=== PATIENT | female | born 2000 | race Caucasian/White ===

== ENCOUNTER 2024-10-21 10:16 | Outpatient (OUT) | payer OTHER, SELFPAY ==
--- NOTE | 2024-10-21 10:50 | ECG_ITS ---
[facility] Test Date: 2024-10-21 Pat Name: LILI NAGY Department: Room: - Gender: Female Wrapper Caser: : 2000 Requested By: JOSE QUINTANILLA Order Number: [id number] Reading MD: JANICE GIBBS Measurements Intervals [place] Rate: 58 P: 38 FL: 139 QRS: 64 QRSD: 89 T: 69 QT: 413 QTc: 406 Interpretive Statements SINUS BRADYCARDIA WITH SINUS ARRHYTHMIA Compared to ECG 09/04/2020 10:33:10 T-wave abnormality no longer present Electronically Signed On 10-21-2024 17:56:50 EST by JANICE GIBBS
[2024-10-21 10:59] LABS: Bilirubin Urine NEGATIVE (NEGATIVE); Blood Urine LARGE (NEGATIVE); Clarity Urine CLEAR (CLEAR); Color Urine YELLOW (YELLOW); Glucose Urine UA NEGATIVE (NEGATIVE); Ketones Urine NEGATIVE (NEGATIVE); Leukocyte Esterase Urine NEGATIVE (NEGATIVE); Nitrite Urine NEGATIVE (NEGATIVE); Protein Urine TRACE mg/dL (NEG/TRACE); Specific Gravity Urine >=1.030 (1.005-1.025); Urobilinogen Urine 0.2 EU/dL (0.2-1.0); pH Urine 5.5 (5.0-9.0)
[2024-10-21 11:00] LABS: Basophils Percent Auto 0.6 % (0.2-2.0); Eosinophils Absolute Auto 0.1 10^3/uL (0.0-0.7); Eosinophils Percent Auto 1.4 % (0.9-7.0); Hematocrit 42.3 % (36.0-48.0); Immature Granulocytes Abs Auto 0.01 10^3/uL (0.00-0.03); Immature Granulocytes Pct Auto 0.2 % (0.0-0.5); Lymphocytes Absolute Auto 1.5 10^3/uL (1.2-3.8); Lymphocytes Percent Auto 31.6 % (20.5-60.0); Mean Corpuscular HGB Conc 35.5 g/dL (29.9-35.2); Mean Corpuscular Hemoglobin 30.9 pg (26.7-34.0); Mean Corpuscular Volume 87.2 fL (81.0-99.0); Mean Platelet Volume 10.7 fL (9.5-13.5); Monocytes Absolute Auto 0.3 10^3/uL (0.3-0.8); Monocytes Percent Auto 6.4 % (1.7-12.0); Neutrophils Absolute Auto 2.9 10^3/uL (1.4-6.5); Neutrophils Percent Auto 59.8 % (43.0-75.0); Platelet Count 228 10^3/uL (150-450); Red Blood Count 4.85 10^6/uL (4.20-5.40); Red Cell Distribution Width 12.4 % (11.0-15.0); White Blood Count 4.9 10^3/uL (4.0-11.0)
[2024-10-21 11:36] LABS: Alanine Aminotransferase 27 U/L (14-59); Albumin Globulin Ratio 1.3; Albumin Level 4.4 g/dL (3.4-5.0); Alkaline Phosphatase 57 U/L (46-116); Anion Gap 13.7; Aspartate Amino Transferase 15 U/L (15-37); BUN Creatinine Ratio 14.3; Bilirubin Total 2.6 mg/dL (0.2-1.0); Calcium 9.2 mg/dL (8.5-10.1); Carbon Dioxide 27.9 mmol/L (21.0-32.0); Chloride 104 mmol/L (98-107); Estimated GFR (African America >60 (>=60 mL/min/1.73m^2); Estimated GFR (Non-African Ame >60 (>=60 mL/min/1.73m^2); Globulin 3.4 g/dL; Glucose 93 mg/dL (74-106); Potassium 3.6 mmol/L (3.5-5.1); Sodium 142 mmol/L (136-145); Thyroid Stimulating Hormone 2.551 uIU/mL (0.358-3.740); Total Protein 7.8 g/dL (6.4-8.2)
== END 2024-10-21 10:17 | disposition home or self-care (01) ==
PROVIDERS: PCP Family Medicine; Visit Provider Family Medicine
DX: Z00.00 Encounter for general adult medical examination without abnormal findings (principal); R53.83 Other fatigue; R35.0 Frequency of micturition; R07.9 Chest pain, unspecified; R00.1 Bradycardia, unspecified
CPT/HCPCS: 36415; 80053; 81003; 84443; 85025; 87086; 93005

== ENCOUNTER 2024-11-08 08:09 | Outpatient (OUT) | payer OTHER, SELFPAY ==
--- OUTSIDE RECORDS SUMMARY | 2024-11-08 08:27 | XMS_ITS | CCD ---
Author Organization [facility] Care Team Providers Care New Patient Escort Name Role Phone MUNA VAZQUEZ Attending Unavailable MUNA VAZQUEZ Consulting Unavailable MUNA VAZQUEZ Primary Care Unavailable MUNA VAZQUEZ Admitting Unavailable HAY ELLIS Attending Unavailable Allergies Allergy Classification Reported Allergen(s) Allergy Type Date of Onset Reaction(s) Facility (3 sources) cefTRIAXone Drug Allergy 4 [facility] (3 sources) Cephalosporins (Antibiotic) Allergy to substance 4 [facility] Comment on above: Onset Date: 06/25/20 13 (3 sources) Penicillins Allergy to substance [address] [place] [address] Comment on above: Onset Date: 06/25/20 13 (1 source) RO-CET-N 100; Translations: [RO-CET-N 100] Propensity to adverse reactions to drug (disorder) 5 [facility] Repository Medications Completed/Discontinued Medications Medication Drug Class(es) Dates Sig (Normalized) Sig (Original) ofloxacin 3 mg/ml ophthalmic solution (2 sources) Quinolone Antimicrobial Start: 06-02-2024 End: 10-21-2024 take 0.3 drop(s) into the eye(s) four times daily Ofloxacin 0.3 % drops Discontinued 2 DROPS OPHTHALMIC Four times daily 02 05June 01, 2024 11:00pm October 21, 2024 9:33am right eye Start: 06-02-2024 take 1 drop(s) into the eye(s) four times daily Ofloxacin Active 2 DROPS OPHTHALMIC Four times daily 02 05June 02, 2024 12:00am right eye sulfamethoxazole 800 mg / trimethoprim 160 mg oral tablet (3 sources) Dihydrofolate Reductase Inhibitor Antibacterial, Sulfonamide Antimicrobial Start: 04-16-2024 End: 06-02-2024 take 1 tablet by mouth twice daily Sulfamethoxazole-Trimethoprim 800-160 mg tablet Discontinued 1 TAB PO Twice daily April 15, 2024 11:00pm June 02, 2024 1:42pm Problems Problem Classification Problem Date Documented Date Episodic/Chronic Cardiac dysrhythmias (6 sources) Tachycardia, unspecified; Translations: [TACHYCARDIA UNSPECIFIED] Onset: 09-04-2020 Episodic Conditions associated with dizziness or vertigo (2 sources) Dizziness and giddiness; Translations: [Dizziness and giddiness] Onset: 11-05-2024 Episodic Genitourinary symptoms and ill-defined conditions (2 sources) Increased frequency of urination; Translations: [Frequency of micturition] 10-21-2024 Episodic Inflammation; infection of eye (except that caused by tuberculosis or sexually transmitteddisease) (1 source) Conjunctivitis of right eye; Translations: [Unspecified conjunctivitis] 06-02-2024 Episodic Malaise and fatigue (2 sources) Fatigue; Translations: [Other fatigue] 10-21-2024 Episodic Nonmalignant breast conditions (3 sources) Cellulitis of breast; Translations: [Mastitis without abscess] 04-17-2024 Episodic Nonspecific chest pain (4 sources) Chest pain; Translations: [Chest pain, unspecified] Onset: 11-05-2024 10-21-2024 Episodic Other liver diseases (2 sources) Unspecified jaundice; Translations: [Unspecified jaundice] Onset: 11-05-2024 Episodic Results Test Name Value Interpretation Reference Range [facility] ity Office Visiton 11-05-2024 Follow-up visit [id number] Tamiko Wills 2000 F Date Provider Department Center 11/05/2024 [id number] ELLIS CARD [facility] Family History Problem Relation Age of Onset No Known Problems Mother No Known Problems Father Atrial fibrillation Maternal Grandmother Myocarditis Maternal Grandmother Other Maternal Grandmother Other Maternal Grandfather Other Maternal Grandfather Family Status - Relation Status Age at Mother Father Maternal Grandmother Maternal Grandfather Level of Service:98635 SC OFFICE/OUTPATIENT NEW MODERATE MDM 45 MINUTES Reason for Visit and Comments: Palpitations [703073] - Had EKG and labs on 10/21/2024. Mother said she had EKG and Holter monitor back in 2019. Shortness of Breath [576727] Chest Pain [519220] - Had an episode of chest pain w/ SOB recently. Mother states her HR was around 115 during this time. She said HR came down very quickly to 66. Fatigue [46] - Says she feels super lethargic . Normal [facility] Vital Signs Date Time Vital Sign Value Performing Clinician Jaclyn hatch 10-21-2024 09:21-0500 Body height 170.18 cm [facility] 10-21-2024 09:21-0500 Body mass index (BMI) [Ratio] 25.7 kg/m2 [facility] 10-21-2024 09:21-0500 Body weight 74.38 kg [facility] 10-21-2024 09:21-0500 Diastolic blood pressure 72 mm[Hg] [facility] 10-21-2024 09:21-0500 Heart rate 94 /min [facility] 10-21-2024 09:21-0500 Systolic blood pressure 111 mm[Hg] [facility] 06-02-2024 14:45-0400 Body height 170.18 cm [facility] 06-02-2024 14:45-0400 Body mass index (BMI) [Ratio] 25.7 kg/m2 [facility] 06-02-2024 14:45-0400 Body temperature 98.9 [degF] [facility] 06-02-2024 14:45-0400 Body weight 74.44 kg [facility] 06-02-2024 14:45-0400 Diastolic blood pressure 78 mm[Hg] [facility] 06-02-2024 14:45-0400 Heart rate 105 /min [facility] 06-02-2024 14:45-0400 SaO2% (BldA) [Mass fraction] 99 % [facility] 06-02-2024 14:45-0400 Systolic blood pressure 119 mm[Hg] [facility] 04-17-2024 13:41-0400 Body height 170.18 cm [facility] 04-16-2024 10:55-0400 Body height 170.18 cm [facility] 04-16-2024 10:55-0400 Body mass index (BMI) [Ratio] 25 kg/m2 [facility] 04-16-2024 10:55-0400 Body weight 72.57 kg [facility] 04-16-2024 10:55-0400 Diastolic blood pressure 76 mm[Hg] [facility] 04-16-2024 10:55-0400 Heart rate 84 /min [facility] 04-16-2024 10:55-0400 Systolic blood pressure 107 mm[Hg] [facility] Encounters Encounter Date Encounter Type Care Provider Facility Start: 11-05-2024 End: 11-05-2024 ambulatory [facility] Start: 10-21-2024 Patient encounter status [facility] Start: 10-21-2024 End: 10-21-2024 ambulatory [facility] Work Phone: Start: 10-21-2024 End: 10-21-2024 Patient encounter procedure [facility] Work Phone: Start: 06-02-2024 End: 06-02-2024 ambulatory [facility] Work Phone: Start: 06-02-2024 End: 06-02-2024 Patient encounter procedure [facility] Work Phone: Start: 04-16-2024 End: 04-16-2024 ambulatory [facility] Work Phone: Start: 04-16-2024 End: 04-16-2024 Patient encounter procedure [facility] Work Phone: Start: 09-04-2020 End: 09-05-2020 Patient encounter procedure MUNA VAZQUEZ Facility: Plan of Treatment Date Care Activity Detail Author Comprehensive metabo lic 2000 panel - Serum or Plasma [facility] enter EKG 12 channel panel [facility] Urine culture [facility] Immunizations Immunization Date Immunization Notes Care Provider Fa cility 03-30-2021 COVID-19 mRNA, Comir enrique (Pfizer) [facility] 03-08-2021 COVID-19 mRNA, Sherri nunez (Pfizer) [facility] 04-25-2019 meningococcal oligosaccharide (groups A, C, Y and W-135) diphtheria toxoid conjugate vaccine (MCV4O) [facility] 07-17-2014 diphtheria, tetanus toxoids and acellular pertussis vaccine, unspecified formulation [facility] Payers Date Payer Category Payer Private Health Insurance [id number] 2000 Unknown [id number] 1959 Unknown [id number] Unknown [place]ini Maldonador JESSA [id number] Unknown Javi Malinetter JESSA [id number] Social History Date Type Detail Facility Start: 04-15-2024 End: 04-15-2024 Tobacco smoking status NHIS Never smoked tobacco (finding) [facility] Start: 2000 Sex Assigned At Female F [facility] Start: 10-21-2024 Sex Female (finding) [facility] Progress note 11-05-2024 Note Date & Type Note Facility 11-05-2024 Note [facility] Note Reason for cardiology consult: Tachycardia, bradycardia, and dizziness. Chief Complaint: As above HPI: Tamiko Wills is a 24 y.o. female without prior cardiac history. No prior history of hypertension, hyperlipidemia, or diabetes mellitus About 2 weeks ago after she ate and got up to do something in her room she suddenly felt mid chest stabbing pain started suddenly and lasted for few minutes however she felt anxious and her heart rate was up . Since then she has been having fluctuating symptoms of feeling anxious, at the time her heart rate we will be in the 120 followed by drop in heart rate to the 60s with which she feels lethargic, nauseous, sometimes little lightheaded and sweaty and sometimes little headache. Also her blood pressure machine has been giving her notification of irregular heart rate when she checks her blood pressure. She has been also watching her heart rate with the apple machine and it was showing that her heart rate is high when she feels anxious and it is down when she feels lethargic and nauseous and sometimes she has little headache. Sometimes also she feels dizzy. She never had syncope. She reports that those episodes occur on and off almost every other day and they can last for few hours. She reports that she had upper respiratory infection couple weeks before all that started and it lasted about 2 to 3 days without any fever or chills. She did not check for COVID or influenza. She reports similar symptoms in her freshman year after she had COVID infection. Also at that time she did not feel well while she had the COVID and noted that her heart rate was elevated and the Apple Watch told her A-fib. At that time she was seen here by cardiology and she was given a monitor for 1 week but it was normal then gradually she became better. Patient and her mother denies any history of anxiety. She drinks about 3 to 4 cans of soda a day and she does not think that she drinks enough water. She denies energy drinks. She denies alcohol or illicit drugs. She denies smoking Cardiology ROS: GENERAL: Denies fever, chills, night sweats, weight loss. HEENT: Denies changes in vision, photophobia, changes in hearing, epistaxis, oral bleeding. CARDIOVASCULAR: Patient reports episodes of increased heart rate associated with feeling anxious followed by slow heart rate associated with feeling lethargic, nauseous, dizzy with headache. She had 1 episode of chest pain. RESPIRATORY: Denies SOB, coughing, wheezing GI: Denies abdominal pain, nausea/vomiting, heartburn, melena/hematochezia. RENAL: Denies dysuria, hematuria, flank pain. MSK: Denies muscle weakness/pain, arthralgias/joint pain. NEUROLOGIC: Denies LOC, weakness, numbness, headaches. SKIN: Denies abnormal rashes or bleeding. PSYCH: Denies significant anxiety, depression, sleep disturbances. Past Medical History She has a past medical history of Abnormal ECG. Surgical History She has no past surgical history on file. Social History She reports that she has never smoked. She has never used smokeless tobacco. She reports that she does not currently use alcohol. No history on file for drug use. Family History Family History Problem Relation Name Age of Onset No Known Problems Mother No Known Problems Father Atrial fibrillation Maternal Grandmother Myocarditis Maternal Grandmother Other (pacemaker) Maternal Grandmother Other (ventricular arrhythmia) Maternal Grandfather Other (pacemaker) Maternal Grandfather Allergies Ro-cet-n 100 Medications No current outpatient medications on file. Last Recorded Vitals Visit Vitals BP 106/74 (BP Location: Left arm, Patient Position: Standing) Pulse 94 Ht 1.702 m (5' 7 ) Wt 76.2 kg (168 lb) SpO2 99% BMI 26.31 kg/m??? Smoking Status Never BSA 1.9 m??? Orthostatic vitals were obtained: Supine position blood pressure 108/72, heart rate 76 Sitting position blood pressure 108/78, heart rate 88 Standing position blood pressure 106/74, heart rate 94 Physical Examination: GENERAL: alert and oriented x3, well developed, in no acute distress. HEAD: atraumatic, normocephalic. EYES: ARMINDA, EOMI. NECK: trachea midline, no JVD present, no carotid bruits present. CARDIAC: S1, S2 present. RRR. No murmur, rubs, or gallops. RESPIRATORY: CTAB, no increased effort of breathing, no rales, rhonchi, or wheezing. ABDOMEN: soft, nontender, nondistended. EXTREMITIES: no lower extremity edema. No rash/skin discoloration present. NEURO: strength/sensation equal and symmetric in bilateral upper and lower extremities. PSYCH: appropriate mood, affect, and judgement. Labs: 10/21/2024 White blood count 4.9, hemoglobin 15, hematocrit 42.3, platelets 228 Sodium 142, potassium 3.6, BUN 12, creatinine 0.84, GFR above 60, glucose 93, calcium 9.2, Total bilirubin 2.6, AST 15, ALT 27, alk phos 57, total protein 7.8, albumin (more content not included)... [facility] Evaluation note Note Date & Type Note Facility Evaluation note No assessment information availa [facility] Work Phone: Evaluation note Note Date & Type Note Facility Evaluation note Diagnosis Onset Date [facility] Work Phone: Evaluation note Note Date & Type Note Facility Evaluation note Diagnosis Onset Date Resolution Chest pain acute October 21, 2024 9:20am Fatigue acute October 21, 2024 9:20am Urinary frequency acute October 21, 2024 9:20am [facility] Work Phone: Summary Purpose Family History No Family History Records Found Relationship Condition Age at Onset Recorded Date/T ben father Diabetes mellitus Unknown Advance Directives No Advanced Directives Records Found Advance Directive Response Recorded Date/ Time Advance Directives No April 16 10:47am Advance Directive Response Recorded Date/ Time Advance Directives No April 16 9:47am Chief Complaint and Reason for Visit Chief Complaint swollen/red breast Chief Complaint swollen/red breast poss pink eye Reason for Visit Cellulitis of right breast Chief Complaint Admit Date Irregular Heartbeat October 21, 2024 9 :20am Reason for Visit Admit Date Chest pain October 21, 2024 9 :20am Fatigue October 21, 2024 9 :20am Urinary frequency October 21, 2024 9 :20am Additional Source Comments INFORMATION SOURCE (unrecogn ized section and content) DATE CREATED AUTHOR 09/19/2020 [facility] DATE CREATED AUTHOR AUTHOR'S ORGANIZ ATION 11/07/[address] [facility] Care Teams (unrecognized sec tion and content) Team Status: Active Member Role Status Dates Muna Vazquez MD Primary Care Provider Active Team Status: Inactive Member Role Status Dates Muna Vazquez MD Primary Care Provide r, Attending Provider Active Start: April 16, 2024 End: April 16, 2024 Team Status: Inactive Member Role Status Dates Muna Vazquez MD Primary Care Provider Active Start: June 02, 2024 End: June 02, 2024 Rylee Hogan APRN Attending Provider Active Start: June 02, 2024 End: June 02, 2024 Team Status: Inactive Member Role Status Dates Muna Vazquez MD Primary Care Provide r, Attending Provider Active Start: October 21, 2024 End: October 21, 2024 Goals (unrecognized section and content) Goals may be documented in a n alternate sectionGoals may be documented in an alternate sectionGoals may be documented in an alternate section FOR RECORDS PERTAINING TO PATIENTS WHO ARE OR HAVE BEEN ENROLLED IN A CHEMICAL DEPENDENCY/SUBSTANCEABUSE PROGRAM, SOME INFORMATION MAY BE OMITTED. This clinical summary was aggregated from multiple sources. Caution should be exercised in using it in the provision of clinical care. This summary normalizes information from multiple sources, and as a consequence, information in this document may materially change the coding, format and clinical context of patient data. In addition, data may be omitted in some cases. CLINICAL DECISIONS SHOULD BE BASED ON THE PRIMARY CLINICAL RECORDS. [facility]. provides no warranty or guarantee of the accuracy or completeness of information in this document.
[2024-11-08 09:06] LABS: Alanine Aminotransferase 23 U/L (14-59); Albumin Globulin Ratio 1.3; Alkaline Phosphatase 48 U/L (46-116); Aspartate Amino Transferase 14 U/L (15-37); Bilirubin Direct 0.3 mg/dL (0.0-0.2); Bilirubin Total 2.1 mg/dL (0.2-1.0); Globulin 3.2 g/dL; Magnesium 1.9 mg/dL (1.8-2.4); Total Protein 7.2 g/dL (6.4-8.2)
== END 2024-11-08 08:10 | disposition home or self-care (01) ==
LOC: LAB 08:10
PROVIDERS: PCP Family Medicine; Visit Provider Internal Medicine Cardiovascular Disease
DX: R17 Unspecified jaundice (principal); R00.0 Tachycardia, unspecified; R42 Dizziness and giddiness
CPT/HCPCS: 36415; 80076; 82533; 83735

== ENCOUNTER 2024-12-02 12:51 | Outpatient (OUT) | payer OTHER, SELFPAY ==
--- NOTE | 2024-12-02 12:58 | CA_ITS ---
Patient Name: LILI NAGY MR#: [id number] : 2000 Exam Date: 12/02/2024 Ordering Doctor: DR. HAY BOLDEN M.D. ECHOCARDIOGRAM REPORT PROCEDURE: CA ECHO DOPPLER COMPLETE INDICATIONS: Chest pain COMPARISON: None. DESCRIPTION: COMPLETE ECHOCARDIOGRAM Real-time transthoracic echocardiography with 2D, M-mode, spectral and color flow Doppler performed. QUALITY: Technical quality was good. LEFT VENTRICLE: Normal chamber size. Normal left ventricular wall thickness. Global left ventricular systolic function is normal. No segmental wall motion abnormalities. Visual estimation of left ventricular ejection fraction is 55 to 60%. LV EF: DIASTOLIC: Normal diastolic function. ATRIAL SEPTUM: It appears intact LEFT ATRIUM: Normal chamber size. RIGHT ATRIUM: Normal chamber size. RIGHT VENTRICLE: Normal chamber size. Normal right ventricular systolic function. TRICUSPID VALVE: Normal mobility and thickness. No stenosis with trivial regurgitation. No evidence of pulmonary hypertension. RVSP 19mmHg MITRAL VALVE: Normal mobility and thickness. No evidence of mitral valve stenosis. There is no mitral annular calcification. Trivial mitral regurgitation. AORTIC VALVE: Normal trileaflet appearance. No visible sclerosis. Normal leaflet mobility. No evidence of aortic valve stenosis. No aortic regurgitation. AORTIC ROOT: Normal diameter and appearance. PULMONIC VALVE: Normal thickness and mobility. No stenosis. Trivial regurgitation. PERICARDIUM: Trivial pericardial effusion. IVC: Collapes with inspirations. Normal size. PLEURA: CONCLUSION: Normal left ventricular size and wall thickness, normal left ventricle systolic function without wall motion abnormalities, ejection fraction 55 to 60% Normal left ventricular diastolic function Normal right ventricle size and systolic function Normal right-sided pressures No significant valvular abnormalities Trivial pericardial effusion Adult Echocardiography Procedure Report Left Ventricle LVEDD (3.7 - 5.6 cm): 4.81 cm LVESD (2.2 - 4.0 cm): 3.15 cm LVIVS thickness (0.6 - 1.2 cm): 0.91 cm LVPW thickness (0.5 - 1.0 cm): 0.71 cm e': 0.19 m/s E - e': 4.11 LVOT Max Gradient: 1.76 mm[Hg] LVOT Area (cm2): 0.66 m/s Peak Velocity (LVOT): 0.66 m/s Mean Velocity (LVOT): 0.48 m/s LVOT Diameter 2.00 cm Left Ventricular Ejection Fraction: Left Atrium LA Volume Index (2D A2C): 28.35 ml/m2 Left Atrium Systolic Dimension: 3.34 cm Mitral Valve MV E to A Ratio: 2.20 MV Max Gradient: MV Mean Gradient: Mitral Valve A-Wave Peak Velocity: 0.36 m/s Mitral Valve E-Wave Peak Velocity: 0.78 m/s Cardiovascular Orifice Area: Right Ventricle RV Internal Diastolic Dimension: 2.92 cm Aorta AO Root Diam: 2.66 cm Ascending Ao Diam: 2.65 cm Aortic Valve AoV Area (Peak Jude): 1.65 cm2, 1.65 cm2 AoV Area (VTI): 1.75 cm2, 1.75 cm2 Deceleration Rawlins: Pressure Half-Time: Peak Velocity(Antegrade Flow): 1.26 m/s Peak Gradient(Antegrade Flow): 6.39 mm[Hg] Mean Velocity(Antegrade Flow): 0.88 m/s Mean Gradient(Antegrade Flow): 3.53 mm[Hg] Velocity Time Integral: 31.14 cm Tricuspid Valve Peak Velocity (Regurgitant Flow): 1.88 m/s, 1.81 m/s, 2.03 m/s Peak Velocity: Pulmonic Valve Mean Gradient: 2.00 mm[Hg], 2.35 mm[Hg] Mean Velocity: 0.66 m/s, 0.72 m/s Peak Velocity: 1.00 m/s Peak Gradient: 3.83 mm[Hg], 4.15 mm[Hg] Right Atrium Right Atrium Systolic Pressure: 37.71 ml, 37.71 ml Dictated by: Hay Bolden MD on 12/02/2024 at 18:07 Approved by: Hay Bolden MD on 12/02/2024 at 18:16
--- OUTSIDE RECORDS SUMMARY | 2024-12-02 13:13 | XMS_ITS | CCD ---
Author Organization [facility] Care Team Providers [facility] [employer] Driver Name Role Phone MUNA VAZQUEZ Attending Unavailable MUNA VAZQUEZ Consulting Unavailable MUNA VAZQUEZ Primary Care Unavailable MUNA VAZQUEZ Admitting Unavailable HAY ELLIS Attending Unavailable Allergies Allergy Classification Reported Allergen(s) Allergy Type Date of Onset Reaction(s) Facility (3 sources) cefTRIAXone Drug Allergy 4 [facility] (3 sources) Cephalosporins (Antibiotic) Allergy to substance [address] [facility] Comment on above: Onset Date: 06/25/20 13 (3 sources) Penicillins Allergy to substance [address] [place] [address] Comment on above: Onset Date: 06/25/20 13 (1 source) RO-CET-N 100; Translations: [RO-CET-N 100] Propensity to adverse reactions to drug (disorder) 5 [facility] Repository Medications Completed/Discontinued Medications Medication Drug Class(es) [...] Results Test Name Value Interpretation Reference Range Facil ity 36on 11-12-2024 36 Regarding lab results from 11/08/2024: MD Anita Barnes MA Magnesium and cortisol level are normal. Total bilirubin still elevated at 2.1. Please forward result to her PCP and advise patient to follow-up with PCP to workup elevated bilirubin Spoke with patient's mother and made her aware. Lab results faxed to Dr. Vazquez's office. Normal [facility] Office Visiton 11-05-2024 Follow-up visit [id number] Tamiko Wills 2000 F Date Provider Department Center 11/05/2024 [id number] ELLIS FUAD Guzmán [facility] Family History Problem Relation Age of Onset No Known Problems Mother No Known Problems Father Atrial fibrillation Maternal Grandmother Myocarditis Maternal Grandmother Other Maternal Grandmother Other Maternal Grandfather Other Maternal Grandfather Family Status - Relation Status Age at Mother Father Maternal Grandmother Maternal Grandfather Level of Service:98276 [place] OFFICE/OUTPATIENT NEW MODERATE MDM 45 MINUTES Reason for Visit and Comments: Palpitations [] - Had EKG and labs on 10/21/2024. Mother said she had EKG and Holter monitor back in 2019. Shortness of Breath [] Chest Pain [] - Had an episode of chest pain w/ SOB recently. Mother states her HR was around 115 during this time. She said HR came down very quickly to 66. Fatigue [46] - Says she feels super lethargic . Normal [facility] Vital Signs Date Time Vital Sign Value Performing Clinician Jaclyn hatch 10-21-2024 09:21-0500 Body height 170.18 cm [facility] 10-21-2024 09:21-0500 Body mass index (BMI) [Ratio] 25.7 kg/m2 [facility] 10-21-2024 09:21-0500 Body weight 74.38 kg [facility] 10-21-2024 09:21-0500 Diastolic blood pressure 72 mm[Hg] [facility] 10-21-2024 09:21-0500 Heart rate 94 /min [facility] 10-21-2024 09:21-0500 Systolic blood pressure 111 mm[Hg] [facility] 06-02-2024 14:45-0400 Body height 170.18 cm [facility] 06-02-2024 14:45-0400 Body mass index (BMI) [Ratio] 25.7 kg/m2 [facility] 06-02-2024 14:45-0400 Body temperature 98.9 [degF] [facility] 06-02-2024 14:45-0400 Body weight 74.44 kg [facility] 06-02-2024 14:45-0400 Diastolic blood pressure 78 mm[Hg] [facility] 06-02-2024 14:45-0400 Heart rate 105 /min [facility] 06-02-2024 14:45-0400 SaO2% (BldA) [Mass fraction] 99 % [facility] 06-02-2024 14:45-0400 Systolic blood pressure 119 mm[Hg] [facility] 04-17-2024 13:41-0400 Body height 170.18 cm [facility] 04-16-2024 10:55-0400 Body height 170.18 cm [facility] 04-16-2024 10:55-0400 Body mass index (BMI) [Ratio] 25 kg/m2 [facility] 04-16-2024 10:55-0400 Body weight 72.57 kg [facility] 04-16-2024 10:55-0400 Diastolic blood pressure 76 mm[Hg] [facility] 04-16-2024 10:55-0400 Heart rate 84 /min [facility] 04-16-2024 10:55-0400 Systolic blood pressure 107 mm[Hg] [facility] Encounters Encounter Date Encounter Type Care Provider Facility Start: 11-05-2024 End: 11-05-2024 ambulatory [facility] Start: 10-21-2024 Patient encounter status [facility] Start: 10-21-2024 End: 10-21-2024 ambulatory [facility] Work Phone: Start: 10-21-2024 End: 10-21-2024 Patient encounter procedure [facility] Physician [facility] Work Phone: Start: 06-02-2024 End: 06-02-2024 ambulatory [facility] Work Phone: Start: 06-02-2024 End: 06-02-2024 Patient encounter procedure [facility] Physician [facility] Work Phone: Start: 04-16-2024 End: 04-16-2024 ambulatory [facility] Work Phone: Start: 04-16-2024 End: 04-16-2024 Patient encounter procedure [facility] Physician [facility] Work Phone: Start: 09-04-2020 End: 09-05-2020 Patient encounter procedure MUNA VAZQUEZ Facility:H1 Plan of Treatment Date Care Activity Detail Author Comprehensive metabo lic 1999 panel - Serum or Plasma [facility] enter EKG 12 channel panel [facility] Urine culture [facility] Immunizations Immunization Date Immunization Notes Care Provider Fa cility 03-30-2021 COVID-19 mRNA, Comir enrique (Pfizer) [facility] 03-08-2021 COVID-19 mRNA, Comir enrique (Pfizer) [facility] 04-25-2019 meningococcal oligosaccharide (groups A, C, Y and W-135) diphtheria toxoid conjugate vaccine (MCV4O) [facility] 07-17-2014 diphtheria, tetanus toxoids and acellular pertussis vaccine, unspecified formulation [facility] Payers Date Payer Category Payer Private Health Insurance [id number] 2002 Unknown [id number] 1959 Unknown [id number] Unknown Javi Malinetter JESSA [id number] Unknown Bryan Ambetter JESSA [id number] Social History Date Type Detail Facility Start: 04-15-2024 End: 04-15-2024 Tobacco smoking status NHIS Never smoked tobacco (finding) [facility] Start: 2000 Sex Assigned At Female F [facility] Start: 10-21-2024 Sex Female (finding) [facility] Progress note 11-05-2024 Note Date & Type Note Facility 11-05-2024 Note [facility] Note Reason for cardiology [...] protein 7.8, albumin (more content not included)... [facility] Evaluation note Note Date & Type Note Facility Evaluation note No assessment information availa ble [facility] Work Phone: Evaluation note Note Date & Type Note Facility Evaluation note Diagnosis Onset Date Cellulitis of right breast a cute [facility] Work Phone: Evaluation note Note Date & Type Note Facility Evaluation note Diagnosis Onset Date Resolution Chest pain acute October 21, 2024 9:20am Fatigue acute October 21, 2024 9:20am Urinary frequency acute October 21, 2024 9:20am [facility] Work Phone: Summary Purpose Family [...] content) DATE CREATED AUTHOR 09/19/2020 [facility] DATE CREATED AUTHOR AUTHOR'S ORGANIZ ATION 11/14/[address] [facility] Care Teams (unrecognized sec tion and [...] BE BASED ON THE PRIMARY CLINICAL RECORDS. [facility]. provides no warranty or guarantee of the accuracy or completeness of information in this document.
== END 2024-12-02 12:52 | disposition home or self-care (01) ==
LOC: CARD 12:52
PROVIDERS: PCP Family Medicine; Visit Provider Internal Medicine Cardiovascular Disease
DX: R07.89 Other chest pain (principal)
CPT/HCPCS: 93306

== ENCOUNTER 2024-12-12 09:48 | Outpatient (OUT) | payer OTHER, SELFPAY ==
--- NOTE | 2024-12-12 09:50 | US_ITS ---
The [address] [address] Patient Name: LILI NAGY MRN: [id number] date: 2000 Sex: F Assigned Patient Location: US Current Patient Location: US Accession/Order Number: [id number] Exam Date: 12/12/2024 10:45 Report Date: 12/12/2024 10:58 At the request of: JOSE QUINTANILLA MD Procedure: US right upper quadrant LIMITED RIGHT UPPER QUADRANT ABDOMINAL ULTRASOUND CLINICAL HISTORY: High Bilirubin. Nausea. COMPARISON: None The gallbladder is physiologically distended without shadowing calculi, wall thickening or pericholecystic fluid. No intra- or extrahepatic biliary dilatation is evident. The common duct measures 2 - 3 mm. The liver shows increased echogenicity suggesting fatty infiltration. No focal intrahepatic masses are seen. There is appropriate hepatopetal flow within the main portal vein. The pancreas shows no significant sonographic abnormality. Cursory evaluation of the right kidney reveals no hydronephrosis or fluid within Machado's pouch. US/US right upper quadrant IMPRESSION: FATTY LIVER. NO GALLBLADDER PATHOLOGY. Impression dictated by: Teresa Colon M.D.12/12/2024 10:58 AM Dictation Location: [place] [address] Electronically authenticated by: [id number] Y Date: 12/12/2024 10:58
--- OUTSIDE RECORDS SUMMARY | 2024-12-12 10:06 | XMS_ITS | CCD ---
Author Organization [facility] Care Team Providers [facility] [employer] Driver Name Role Phone MUNA VAZQUEZ Attending Unavailable MUNA VAZQUEZ Consulting Unavailable MUNA VAZQUEZ Primary Care Unavailable MUNA VAZQUEZ Admitting Unavailable HAY ELLIS Attending Unavailable Allergies Allergy Classification Reported Allergen(s) Allergy Type Date of Onset Reaction(s) Facility (3 sources) cefTRIAXone Drug Allergy [address] [facility] (3 sources) Cephalosporins (Antibiotic) Allergy to substance 4 [facility] Comment on above: Onset Date: 06/25/20 13 (3 sources) Penicillins Allergy to substance [address] [place] [address] Comment on above: Onset Date: 06/25/20 13 (1 source) RO-CET-N 100; Translations: [RO-CET-N 100] Propensity to adverse reactions to drug (disorder) 5 [facility] Repository Medications Completed/Discontinued Medications Medication Drug [...] results faxed to Dr. Vazquez's office. Normal [facility] Office Visiton 11-05-2024 Follow-up visit [id number] Tamiko Wills 2000 F Date Provider Department Center 11/05/2024 [id number] ELLIS FUAD Guzmán [facility] Family History Problem Relation Age of Onset No Known Problems Mother No Known Problems Father Atrial fibrillation Maternal Grandmother Myocarditis Maternal Grandmother Other Maternal Grandmother Other Maternal Grandfather Other Maternal Grandfather Family Status - Relation Status Age at Mother Father Maternal Grandmother Maternal Grandfather Level of Service:42238 [place] OFFICE/OUTPATIENT NEW MODERATE MDM 45 MINUTES Reason [...] she feels super lethargic . Normal [facility] Vital Signs Date Time Vital Sign Value Performing Clinician Jaclyn hatch 10-21-2024 09:21-0500 Body height 170.18 cm [facility] 10-21-2024 09:21-0500 Body mass index (BMI) [Ratio] 25.7 kg/m2 [facility] 10-21-2024 09:21-0500 Body weight 74.38 kg [facility] 10-21-2024 09:21-0500 Diastolic blood pressure 72 mm[Hg] [facility] 10-21-2024 09:21-0500 Heart rate 94 /min [facility] 10-21-2024 09:21-0500 Systolic blood pressure 111 mm[Hg] [facility] 06-02-2024 14:45-0400 Body height 170.18 cm [facility] 06-02-2024 14:45-0400 Body mass index (BMI) [Ratio] 25.7 kg/m2 [facility] 06-02-2024 14:45-0400 Body temperature 98.9 [degF] [facility] 06-02-2024 14:45-0400 Body weight 74.44 kg [facility] 06-02-2024 14:45-0400 Diastolic blood pressure 78 mm[Hg] [facility] 06-02-2024 14:45-0400 Heart rate 105 /min [facility] 06-02-2024 14:45-0400 SaO2% (BldA) [Mass fraction] 99 % [facility] 06-02-2024 14:45-0400 Systolic blood pressure 119 mm[Hg] [facility] 04-17-2024 13:41-0400 Body height 170.18 cm [facility] 04-16-2024 10:55-0400 Body height 170.18 cm [facility] 04-16-2024 10:55-0400 Body mass index (BMI) [Ratio] 25 kg/m2 [facility] 04-16-2024 10:55-0400 Body weight 72.57 kg [facility] 04-16-2024 10:55-0400 Diastolic blood pressure 76 mm[Hg] [facility] 04-16-2024 10:55-0400 Heart rate 84 /min [facility] 04-16-2024 10:55-0400 Systolic blood pressure 107 mm[Hg] [facility] Encounters Encounter Date Encounter Type Care Provider Facility Start: 11-05-2024 End: 11-05-2024 ambulatory [facility] Start: 10-21-2024 Patient encounter status [facility] Start: 10-21-2024 End: 10-21-2024 ambulatory [facility] Work Phone: Start: 10-21-2024 End: 10-21-2024 Patient encounter procedure [facility] Physician [facility] Work Phone: Start: 06-02-2024 End: 06-02-2024 ambulatory [facility] Work Phone: Start: 06-02-2024 End: 06-02-2024 Patient encounter procedure [facility] Physician [facility] Work Phone: Start: 04-16-2024 End: 04-16-2024 ambulatory [facility] Work Phone: Start: 04-16-2024 End: 04-16-2024 Patient encounter procedure [facility] Physician [facility] Work Phone: Start: 09-04-2020 End: 09-05-2020 Patient encounter procedure MUNA VAZQUEZ Facility:H1 Plan of Treatment Date Care Activity Detail Author Comprehensive metabo lic 1999 panel - Serum or Plasma [facility] enter EKG 12 channel panel [facility] Urine culture [facility] Immunizations Immunization Date Immunization Notes Care Provider Fa cility 03-30-2021 COVID-19 mRNA, Comir enrique (Pfizer) [facility] 03-08-2021 COVID-19 mRNA, Comir enrique (Pfizer) [facility] 04-25-2019 meningococcal oligosaccharide (groups A, C, Y and W-135) diphtheria toxoid conjugate vaccine (MCV4O) [facility] 07-17-2014 diphtheria, tetanus toxoids and acellular pertussis vaccine, unspecified formulation [facility] Payers Date Payer Category Payer Private Health Insurance [id number] 2000 Unknown [id number] 1959 Unknown [id number] Unknown Jvai Malinetter JESSA [id number] Unknown Waverly Ambetter JESSA [id number] Social History Date Type Detail Facility Start: 04-15-2024 End: 04-15-2024 Tobacco smoking status NHIS Never smoked tobacco (finding) [facility] Start: 2000 Sex Assigned At Female F [facility] Start: 10-21-2024 Sex Female (finding) [facility] Progress note 11-05-2024 Note Date & Type [...] 7.8, albumin (more content not included)... [facility] Evaluation note Note Date & Type Note Facility Evaluation note No assessment information availa ble [facility] Work Phone: Evaluation note Note Date & Type Note Facility Evaluation note Diagnosis Onset Date Cellulitis of right breast a cute [facility] Work Phone: Evaluation note Note Date & Type Note Facility Evaluation note Diagnosis Onset Date Resolution Chest pain acute October 21, 2024 9:20am Fatigue acute October 21, 2024 9:20am Urinary frequency acute October 21, 2024 9:20am [facility] Work Phone: Summary Purpose Family [...] DATE CREATED AUTHOR AUTHOR'S ORGANIZ ATION 11/14/2024 [facility] Care Teams (unrecognized sec tion and [...] BE BASED ON THE PRIMARY CLINICAL RECORDS. [facility] [employer] [facility]. provides no warranty or guarantee of the accuracy or completeness of information in this document.
== END 2024-12-12 09:49 | disposition home or self-care (01) ==
LOC: US 09:48
PROVIDERS: PCP Family Medicine; Visit Provider Family Medicine
DX: R17 Unspecified jaundice (principal)
CPT/HCPCS: 76705

== ENCOUNTER 2025-01-01 08:06 | Outpatient (OUT) | payer OTHER, SELFPAY ==
--- OUTSIDE RECORDS SUMMARY | 2025-01-01 08:19 | XMS_ITS | CCD ---
Author Organization [facility] Care Team Providers Care Pipe Out Worker Name Role Phone MUNA VAZQUEZ Attending Unavailable MUNA VAZQUEZ Consulting Unavailable MUNA VAZQUEZ Primary Care Unavailable MUNA VAZQUEZ Admitting Unavailable HAY ELLIS Attending Unavailable HAY ELLIS Attending Unavailable Allergies Allergy Classification Reported Allergen(s) Allergy Type Date of Onset Reaction(s) Facility (3 sources) cefTRIAXone Drug Allergy 4 [facility] (3 sources) Cephalosporins (Antibiotic) Allergy to substance [address] [place] [address] Comment on above: Onset Date: 06/25/20 13 (3 sources) Penicillins Allergy to substance [address] [place] [address] Comment on above: Onset Date: 06/25/20 13 (1 source) RO-CET-N 100; Translations: [RO-CET-N 100] Propensity to adverse reactions to drug (disorder) 5 [facility] Repository Medications Completed/Discontinued Medications Medication Drug Class(es) [...] Problem Date Documented Date Episodic/Chronic Cardiac dysrhythmias (2 sources) Cardiac arrhythmia, unspecified; Translations: [Cardiac arrhythmia, unspecified] Onset: 12-18-2024 Chronic Cardiac dysrhythmias (6 sources) Tachycardia, unspecified; Translations: [...] Name Value Interpretation Reference Range Facil ity Office Visiton 12-18-2024 Follow-up visit [id number] Tamiko Wills 2000 F Date Provider Department Center 12/18/2024 [id number] ELLIS Family History Problem Relation Age of Onset No Known Problems Mother No Known Problems Father Atrial fibrillation Maternal Grandmother Myocarditis Maternal Grandmother Other Maternal Grandmother Other Maternal Grandfather Other Maternal Grandfather Family Status - Relation Status Age at Mother Father Maternal Grandmother Maternal Grandfather Level of Service:69786 NE OFFICE/OUTPATIENT ESTABLISHED MOD MDM 30 MIN Reason for Visit and Comments: Dizziness [278901] - Resolved. Palpitations [684647] - Resolved. Had echo, Holter monitor, and labs. Normal [facility] 36on 11-12-2024 36 Regarding lab results from 11/08/2024: MD Anita Barnes MA Magnesium and cortisol level are normal. Total bilirubin still elevated at 2.1. Please forward result to her PCP and advise patient to follow-up with PCP to workup elevated bilirubin Spoke with patient's mother and made her aware. Lab results faxed to Dr. Vazquez's office. Normal [facility] Office Visiton 11-05-2024 Follow-up visit [id number] Tamiko Wills 2000 F Date Provider Department Center 11/05/2024 [id number] ELLIS FUAD Vasques Family History Problem Relation Age of Onset No Known Problems Mother No Known Problems Father Atrial fibrillation Maternal Grandmother Myocarditis Maternal Grandmother Other Maternal Grandmother Other Maternal Grandfather Other Maternal Grandfather Family Status - Relation Status Age at Mother Father Maternal Grandmother Maternal Grandfather Level of Service:53709 NE OFFICE/OUTPATIENT NEW MODERATE MDM 45 MINUTES Reason for Visit and Comments: Palpitations [003468] - Had EKG and labs on 10/21/2024. Mother said she had EKG and Holter monitor back in 2019. Shortness of Breath [406198] Chest Pain [454577] - Had an episode of chest pain w/ SOB recently. Mother states her HR was around 115 during this time. She said HR came down very quickly to 66. Fatigue [46] - Says she feels super lethargic . Normal [facility] Vital Signs Date Time Vital Sign Value Performing Clinician Jaclyn hatch 10-21-2024 09:0500 Body height 170.18 cm [facility] 10-21-2024 09:0500 Body mass index (BMI) [Ratio] 25.7 kg/m2 [facility] 10-21-2024 09:0500 Body weight 74.38 kg [facility] 10-21-2024 09:0500 Diastolic blood pressure 72 mm[Hg] [facility] 10-21-2024 09:21-0500 Heart rate 94 /min [facility] 10-21-2024 09:21-0500 Systolic blood pressure 111 mm[Hg] [facility] 06-02-2024 14:45-0400 Body height 170.18 cm [facility] 06-02-2024 14:45-0400 Body mass index (BMI) [Ratio] 25.7 kg/m2 [facility] 06-02-2024 14:45-0400 Body temperature 98.9 [degF] [facility] 06-02-2024 14:45-0400 Body weight 74.44 kg [facility] 06-02-2024 14:45-0400 Diastolic blood pressure 78 mm[Hg] [facility] 06-02-2024 14:45-0400 Heart rate 105 /min [facility] 06-02-2024 14:45-0400 SaO2% (BldA) [Mass fraction] 99 % [facility] 06-02-2024 14:45-0400 Systolic blood pressure 119 mm[Hg] [facility] 04-17-2024 13:41-0400 Body height 170.18 cm [facility] 04-16-2024 10:55-0400 Body height 170.18 cm [facility] 04-16-2024 10:55-0400 Body mass index (BMI) [Ratio] 25 kg/m2 [facility] 04-16-2024 10:55-0400 Body weight 72.57 kg [facility] 04-16-2024 10:55-0400 Diastolic blood pressure 76 mm[Hg] [facility] 04-16-2024 10:55-0400 Heart rate 84 /min [facility] 04-16-2024 10:55-0400 Systolic blood pressure 107 mm[Hg] [facility] Encounters Encounter Date Encounter Type Care Provider Facility Start: 12-18-2024 End: 12-18-2024 ambulatory [facility] Start: 11-05-2024 End: 11-05-2024 [facility] Start: 10-21-2024 Patient encounter status [facility] Start: 10-21-2024 End: 10-21-2024 ambulatory [facility] Work Phone: Start: 10-21-2024 End: 10-21-2024 Patient encounter procedure [facility] Work Phone: Start: 06-02-2024 End: 06-02-2024 ambulatory [facility] Work Phone: Start: 06-02-2024 End: 06-02-2024 Patient encounter procedure [facility] Phys[facility] Work Phone: Start: 04-16-2024 End: 04-16-2024 ambulatory [facility] Work Phone: Start: 04-16-2024 End: 04-16-2024 Patient encounter procedure [facility] Physician [facility] Work Phone: Start: 09-04-2020 End: 09-05-2020 Patient encounter procedure MUNA VAZQUEZ Facility: Plan of Treatment Date Care Activity Detail Author Comprehensive metabo lic 2000 panel - Serum or Plasma [facility] enter EKG 12 channel panel [facility] Urine culture [facility] Immunizations Immunization Date Immunization Notes Care Provider Fa cility 03-30-2021 COVID-19 mRNA, Comir enrique (Pfizer) [facility] 03-08-2021 COVID-19 mRNA, Comir enrique (Pfizer) [facility] 04-25-2019 meningococcal oligosaccharide (groups A, C, Y and W-135) diphtheria toxoid conjugate vaccine (MCV4O) [facility] 07-17-2014 diphtheria, tetanus toxoids and acellular pertussis vaccine, unspecified formulation [facility] Payers Date Payer Category Payer Private Health Insurance [id number] 2000 Unknown [id number] 1959 Unknown [id number] Unknown Javi Garg [facility] [id number] Unknown Javi Garg [facility] [id number] Social History Date Type Detail Facility Start: 04-15-2024 End: 04-15-2024 Tobacco smoking status NHIS Never smoked tobacco (finding) [facility] Start: 2000 Sex Assigned At Female F [facility] Start: 10-21-2024 Sex Female (finding) [facility] Progress note 12-18-2024 Note Date & Type Note Facility 12-18-2024 Note [facility] Note Reason for cardiology visit follow-up HPI: 12/18/2024 The patient is here today for follow-up visit accompanied by her mother. She states that she has been eating much better after she cut down on the soda and increased her water intake. No further chest pain or palpitation or dizziness. She had a workup for the elevated bilirubin and she was found to have fatty liver and enlarged gallbladder and she is now on diet. She has been active and she denies significant chest pain or shortness of breath or dizziness or palpitations. She denies legs edema or leg discomfort on exertion. 11/05/2024 Tamiko Wills is a 24 y.o. female [...] also watching her heart rate with the DailyBurn machine and it was showing that her [...] alcohol or illicit drugs. She denies smoking ROS: All systems were reviewed and they were negative except for the positive findings noted above in the history Past Medical History She has a past [...] file. Last Recorded Vitals Visit Vitals BP 104/74 (BP Location: Left arm, Patient Position: Sitting) Pulse 87 Ht 1.702 m (5' 7 ) Wt 75.8 kg (167 lb) SpO2 97% BMI 26.16 kg/m??? Smoking Status Never BSA 1.89 m??? Physical Examination: GENERAL: alert and oriented x3, [...] PSYCH: appropriate mood, affect, and judgement. Labs: 11/08/2023 Magnesium 1.9, total bilirubin 2.1, direct bilirubin 0.3, AST 14, ALT 23, alk phos 48, total protein 7.2, albumin 4 Cortisol level 19.2 10/21/2024 White blood count 4.9, hemoglobin 15, hematocrit 42.3, platelets 228 Sodium 142, potassium 3.6, BUN 12, creatinine 0.84, GFR above 60, glucose 93, calcium 9.2, Total bilirubin 2.6, AST 15, ALT 27, alk phos 57, total protein 7.8, albumin 44 TSH 2.551 Last Images: EKG 10/21/2024 showed sinus bradycardia with sinus arrhythmia, heart rate 58 bpm, otherwise normal EKG Echo 12/02/2024 2 weeks event monitor 11/05/2024 - 11/19/2024 Sinus rhythm heart rate 41 to (more content not included)... [facility] Progress note 11-05-2024 Note Date & Type [...] protein 7.8, albumin (more content not included)... [facility] Evaluation note Note Date & Type Note Facility Evaluation note No assessment information availa [facility] Work Phone: Evaluation note Note Date & Type Note Facility Evaluation note Diagnosis Onset Date Cellulitis of right breast a darius [facility] Work Phone: Evaluation note Note Date & Type Note Facility Evaluation note Diagnosis Onset Date Resolution Chest pain acute October 21, 2024 9:20am Fatigue acute October 21, 2024 9:20am Urinary frequency acute October 21, 2024 9:20am [facility] Work Phone: Summary Purpose Family History No [...] pital DATE CREATED AUTHOR AUTHOR'S ORGANIZ ATION 12/20/2024 [facility] Care Teams (unrecognized sec tion and [...] BE BASED ON THE PRIMARY CLINICAL RECORDS. [facility] [employer] [facility]. provides no warranty or guarantee of the accuracy or completeness of information in this document.
--- NOTE | 2025-01-01 08:42 | PC.NURSE ---
Nursing Note Cardiac Stress Test Reviewed: Medication, allergies and patient history reviewed. Stress Test: [x ] Patient tolerated stress test well. [ ] Patient unable to tolerate walking on treadmill. Switched to Lexiscan stress test. [ x] No chest pain noted per patient [ ] Chest pain that resolved prior to leaving stress lab. [x ] No dyspnea noted. [ ] Dyspnea that resolved prior to leaving stress lab. [ x] Patient left stress lab asymptomatic and hemodynamically stable. [ ] Patient taken to the Emergency Room due to non-resolving symptoms following stress test. [x ] Patient achieved target heart rate. [ ] Patient unable to achieve target heart rate. [ ] Aminophylline administered as reversal agent to Lexiscan (Regadenoson). [ ] Nitro administered. Nursing Comments:
--- NOTE | 2025-01-01 16:48 | P.STRESS_ITS ---
Stress Test Stress Test Requesting physician: Jeanette Bolden Procedure: This was a Treadmill stress test performed at the [facility] on 01/01/2025. The patient was attached to electrocardiographic monitoring. Baseline vital signs and ECG were obtained. The patient exercised on the treadmill according to the Mark protocol. Time was 7 minutes and 1 seconds, the patient reached stage 3 of the Mark protocol and achieved 10.1 METS. The test was stopped due to target heart rate being achieved. Resting heart rate was 81 bpm and peak heart rate was 181 bpm representing 91% of maximum predicted heart rate. Resting blood pressure was 110/64 and peak blood pressure was 134/64. General Information: Reason for Stress Test: Palpitations, chest pain. Cardiac History and Risk Factors: None. Resting 12 - Lead Electrocardiogram: Normal sinus rhythm, normal ECG. Stress Test: Protocol: Mark protocol. Exercise Capacity: Average. Blood Pressure Response: Normal resting blood pressure, appropriate blood pressure response to exercise. Rhythm: Sinus rhythm throughout the test. No arrhythmias. ST - Response: No ischemic ST changes seen throughout the test. Patient Response: No symptoms. Interpretation: 1. Negative treadmill exercise stress test for ischemic ECG changes or arrhythmias. 2. Castle treadmill score of +7 is associated with low risk for long-term cardiac events.
== END 2025-01-01 08:07 | disposition home or self-care (01) ==
LOC: CARD 08:07
PROVIDERS: PCP Family Medicine; Visit Provider Internal Medicine Cardiovascular Disease
DX: R07.2 Precordial pain (principal)
CPT/HCPCS: 93017

== ENCOUNTER 2025-06-05 15:12 | Outpatient (OUT) | payer OTHER, SELFPAY ==
--- OUTSIDE RECORDS SUMMARY | 2025-05-15 15:12 | XMS_ITS | CCD ---
Author Organization [facility] Care Team Providers Care Household Appliances Salesperson Name Role Phone MUNA VAZQUEZ Attending Unavailable MUNA VAZQUEZ Consulting Unavailable MUNA VAZQUEZ Primary Care Unavailable MUNA VAZQUEZ Admitting Unavailable DAISY EDUARDO Attending Unavailable HAY BOLDEN Attending Unavailable HAY BOLDEN Attending Unavailable Muna Vazquez MD Primary Care Provider [phone] Muna Vazquez MD Attending Provider Heidy Rojas MD Attending Provider [phone] Allergies Allergy Classification Reported Allergen(s) Allergy Type Date of Onset Reaction(s) Facility (5 sources) cefTRIAXone Drug Allergy 4 [facility] (5 sources) Cephalosporins (Antibiotic) Allergy to substance 4 [facility] Comment on above: Onset Date: 06/25/20 13 (5 sources) Penicillins Allergy to substance 4 [facility] Comment on above: Onset Date: 06/25/20 13 (1 source) RO-CET-N 100; Translations: [RO-CET-N 100] Propensity to adverse reactions to drug (disorder) 5 [facility] Repository Medications Current Medications Medication Drug Class(es) Dates Sig (Normalized) Sig (Original) [place] (No Known Home Meds) (2 sources) Start: 02-04-2025 [place] (No Known Home Meds) Active February 04, 2025 12:00am Completed/Discontinued Medications Medication Drug Class(es) Dates Sig (Normalized) Sig (Original) ofloxacin 3 mg/ml ophthalmic solution (4 sources) Quinolone Antimicrobial Start: 06-02-2024 End: 10-21-2024 take 0.3 drop(s) into the eye(s) four times daily Ofloxacin 0.3 % drops Discontinued 2 DROPS OPHTHALMIC Four times daily 02 05June 02, 2024 12:00am October 21, 2024 10:33am right eye Start: 06-02-2024 take 1 drop(s) into the eye(s) four times daily Ofloxacin Active 2 DROPS OPHTHALMIC Four times daily 02 05June 02, 2024 12:00am right eye sulfamethoxazole 800 mg / trimethoprim 160 mg oral tablet (5 sources) Dihydrofolate Reductase Inhibitor Antibacterial, Sulfonamide Antimicrobial Start: 04-16-2024 End: 06-02-2024 take 1 tablet by mouth twice daily Sulfamethoxazole-Trimethoprim 800-160 mg tablet Discontinued 1 TAB PO Twice daily April 16, 2024 12:00am June 02, 2024 2:42pm Problems Active Problems Problem Classification Problem Date Documented Date Episodic/Chronic Cardiac dysrhythmias (4 sources) Cardiac arrhythmia, unspecified; Translations: [Nonsustained ventricular tachycardia ] Onset: 12-18-2024 Chronic Genitourinary symptoms and ill-defined conditions (4 sources) Increased frequency of urination; Translations: [Frequency of micturition] 10-21-2024 Episodic Inflammation; infection of eye (except that caused by tuberculosis or sexually transmitteddisease) (3 sources) Conjunctivitis of right eye; Translations: [Unspecified conjunctivitis] 06-02-2024 Episodic Malaise and fatigue (4 sources) Fatigue; Translations: [Other fatigue] 10-21-2024 Episodic Nonmalignant breast conditions (5 sources) Cellulitis of breast; Translations: [Mastitis without abscess] 04-17-2024 Episodic Nonspecific chest pain (6 sources) Chest pain; Translations: [Chest pain, unspecified] Onset: 11-05-2024 10-21-2024 Episodic Other liver diseases (2 sources) Steatosis of liver; Translations: [Fatty (change of) liver, not elsewhere classified] 04-28-2025 Chronic Other liver diseases (5 sources) Increased bilirubin level; Translations: [Unspecified jaundice] 11-27-2024 Episodic Other liver diseases (1 source) Jaundice; Translations: [Unspecified jaundice] 04-28-2025 Episodic Other nutritional; endocrine; and metabolic disorders (2 sources) Gilbert's syndrome; Translations: [Gilbert syndrome] 04-28-2025 Chronic Unclassified (1 source) R17 - Unspecified jaundice Past or Other Problems Problem Classification Problem Date Documented Da te Episodic/Chronic Cardiac dysrhythmias (6 sources) Tachycardia, unspecified; Translations: [TACHYCARDIA UNSPECIFIED] Onset: 09-04-2020 Episodic Conditions associated with dizziness or vertigo (2 sources) Dizziness and giddiness; Translations: [Dizziness and giddiness] Onset: 11-05-2024 Episodic Other liver diseases (3 sources) Unspecified jaundice; Translations: [Disorders of bilirubin excretion] Onset: 11-05-2024 02-05-2025 Episodic Results Test Name Value Interpretation Reference Range Facil ity Office Visiton 03-06-2025 Follow-up visit [id number] Tamiko Wills 2000 F Date Provider Department Center 03/06/2025 DAISY RAMÍREZ Family History Problem Relation Age of Onset No Known Problems Mother No Known Problems Father Atrial fibrillation Maternal Grandmother Myocarditis Maternal Grandmother Other Maternal Grandmother Other Maternal Grandfather Other Maternal Grandfather Family Status - Relation Status Age at Mother Alive Father Alive Maternal Grandmother Maternal Grandfather Level of Service:56824 ME OFFICE/OUTPATIENT ESTABLISHED LOW MDM 20 MIN Normal [facility] 36on 01-13-2025 36 Regarding routine stress test result from 01/01/2025: MD Anita Barnes MA Please notify the patient that stress test is normal at good exercise level. No further cardiac workup is needed. LM with above message per Dr. Bolden. I asked patient to call us back to see if she would like to keep her apt with Dr. Bolden scheduled for next month. Normal [facility] Office Visiton 12-18-2024 Follow-up visit [id number] Tamiko iWlls 2000 F Date Provider Department Center 12/18/2024 [id number] CHANG Family History Problem Relation Age of Onset No Known Problems Mother No Known Problems Father Atrial fibrillation Maternal Grandmother Myocarditis Maternal Grandmother Other Maternal Grandmother Other Maternal Grandfather Other Maternal Grandfather Family Status - Relation Status Age at Mother Father Maternal Grandmother Maternal Grandfather Level of Service:58678 ME OFFICE/OUTPATIENT ESTABLISHED MOD MDM 30 MIN Reason for Visit and Comments: Dizziness [721492] - Resolved. Palpitations [049940] - Resolved. Had echo, Holter monitor, and labs. Normal [facility] 36on 11-12-2024 36 Regarding lab results from 11/08/2024: MD Anita Barnes MA Magnesium and cortisol level are normal. Total bilirubin still elevated at 2.1. Please forward result to her PCP and advise patient to follow-up with PCP to workup elevated bilirubin Spoke with patient's mother and made her aware. Lab results faxed to Dr. Vazquez's office. Normal [facility] Globulin Calc (S) [Mass/Vol] on 11-08-2024 Globulin (S) [Mass/Vol] Serum globulin measurement by calculation (mass/volume) [facility] - Chemistry and C hemistry - challengeon 11-08-2024 Albumin [Mass/Vol] 4.0 g/dL 3.4-5.0 [facility] ALP [Catalytic activity/Vol] 48 U/L 46-116 [facility] ALT [Catalytic activity/Vol] 23 U/L 14-59 [facility] AST [Catalytic activity/Vol] 14 U/L Low 15-37 [facility] Bilirubin [Mass/Vol] 2.1 mg/dL High 0.2-1.0 [facility] Bilirubin.direct [Mass/Vol] 0.3 mg/dL High 0.0-0.2 [facility] Magnesium [Mass/Vol] 1.9 mg/dL 1.8-2.4 [facility] Protein [Mass/Vol] 7.2 g/dL 6.4-8.2 [facility] Serum or plasma albumin/glob ulin mass ratioon 11-08-2024 Albumin/Globulin [Mass ratio] Serum or plasma albumin/globulin mass ratio [facility] Office Visiton 11-05-2024 Follow-up visit [id number] Tamiko Wills 2000 F Date Provider Department Center 11/05/2024 [id number] BOLDEN CARD [facility] Family History Problem Relation Age of Onset No Known Problems Mother No Known Problems Father Atrial fibrillation Maternal Grandmother Myocarditis Maternal Grandmother Other Maternal Grandmother Other Maternal Grandfather Other Maternal Grandfather Family Status - Relation Status Age at Mother Father Maternal Grandmother Maternal Grandfather Level of Service:86587 ME OFFICE/OUTPATIENT NEW MODERATE MDM 45 MINUTES Reason [...] Says she feels super lethargic . Normal [facility] Vital Signs Date Time Vital Sign Value Performing Clinician Jaclyn hatch 04-28-2025 11:03-0400 Body height 170.18 cm Muna Vazquez MD Work Phone: [facility] 04-28-2025 11:03-0400 Body mass index (BMI) [Ratio] 26.2 kg/m2 Muna Vazquez MD Work Phone: [facility] 04-28-2025 11:03-0400 Body weight 75.74 kg Muna Vazquez MD Work Phone: [facility] 04-28-2025 11:03-0400 Diastolic blood pressure 83 mm[Hg] Muna Vazquez MD Work Phone: [facility] 04-28-2025 11:03-0400 Heart rate 83 /min Muna Vazquez MD Work Phone: [facility] 04-28-2025 11:03-0400 Systolic blood pressure 133 mm[Hg] Muna Vazquez MD Work Phone: [facility] 02-05-2025 10:35-0400 Body height 170.18 cm [facility] 02-05-2025 10:35-0400 Body mass index (BMI) [Ratio] 26.3 kg/m2 [facility] 02-05-2025 10:35-0400 Body weight 76.2 kg [facility] 02-05-2025 10:35-0400 Diastolic blood pressure 74 mm[Hg] [facility] 02-05-2025 10:35-0400 Heart rate 90 /min [facility] 02-05-2025 10:35-0400 Systolic blood pressure 107 mm[Hg] [facility] 10-21-2024 09:21-0500 Body height 170.18 cm [facility] 10-21-2024 09:21-0500 Body mass index (BMI) [Ratio] 25.7 kg/m2 [facility] 10-21-2024 09:21-0500 Body weight 74.38 kg [facility] 10-21-2024 09:21-0500 Diastolic blood pressure 72 mm[Hg] [facility] 10-21-2024 09:21-0500 Heart rate 94 /min [facility] 10-21-2024 09:21-0500 Systolic blood pressure 111 mm[Hg] [facility] 06-02-2024 14:45-0400 Body height 170.18 cm [facility] 06-02-2024 14:45-0400 Body mass index (BMI) [Ratio] 25.7 kg/m2 [facility] 06-02-2024 14:45-0400 Body temperature 98.9 [degF] [facility] 06-02-2024 14:45-0400 Body weight 74.44 kg [facility] 06-02-2024 14:45-0400 Diastolic blood pressure 78 mm[Hg] [facility] 06-02-2024 14:45-0400 Heart rate 105 /min [facility] 06-02-2024 14:45-0400 SaO2% (BldA) [Mass fraction] 99 % [facility] 06-02-2024 14:45-0400 Systolic blood pressure 119 mm[Hg] [facility] 04-17-2024 13:41-0400 Body height 170.18 cm [facility] 04-16-2024 10:55-0400 Body height 170.18 cm [facility] 04-16-2024 10:55-0400 Body mass index (BMI) [Ratio] 25 kg/m2 [facility] 04-16-2024 10:55-0400 Body weight 72.57 kg [facility] 04-16-2024 10:55-0400 Diastolic blood pressure 76 mm[Hg] [facility] 04-16-2024 10:55-0400 Heart rate 84 /min [facility] 04-16-2024 10:55-0400 Systolic blood pressure 107 mm[Hg] [facility] Encounters Encounter Date Encounter Type Care Provider Facility Start: 04-28-2025 End: 04-28-2025 ambulatory Muna Vazquez MD Work Phone: [facility] Work Phone: Start: 04-28-2025 End: 04-28-2025 Patient encounter procedure Heidy Rojas MD -[facility] Work Phone: Start: 03-06-2025 End: 03-06-2025 ambulatory [facility] Start: 02-05-2025 End: 02-05-2025 ambulatory [facility] Work Phone: Start: 02-05-2025 End: 02-05-2025 Patient encounter procedure [facility] Work Phone: Start: 12-18-2024 End: 12-18-2024 ambulatory [facility] Start: 11-08-2024 Non-patient / [facility]visit [facility] Work Phone: Start: 11-05-2024 End: 11-05-2024 ambulatory [facility] Start: 10-21-2024 Patient encounter status [facility] Start: 10-21-2024 End: 10-21-2024 ambulatory [facility] Work Phone: Start: 10-21-2024 End: 10-21-2024 [facility] Start: 06-02-2024 End: 06-02-2024 ambulatory [facility] Work Phone: Start: 06-02-2024 End: 06-02-2024 Patient encounter procedure [facility] Work Phone: Start: 04-16-2024 End: 04-16-2024 ambulatory [facility] Work Phone: Start: 04-16-2024 End: 04-16-2024 Patient encounter procedure [facility] Work Phone: Start: 09-04-2020 End: 09-05-2020 Patient encounter procedure MUNA VAZQUEZ Facility: Procedures Date Procedure Procedure Detail Performing Clinician Start: 11-08-2024 Cortisol total Comment on above: Please Note: The ref erence interval and flagging for this test is for an AM collection. If this is a PM collection please use: Cortisol PM: 2.3-11.9Performed at: - [facility] [place] [id number] Director: Sadiq Goodrich PhD, Phone: [phone] Plan of Treatment Date Care Activity Detail Author Start: 02-05-2025 Patient referral [facility] Work Phone: Comprehensive metabo lic 2000 panel - Serum or Plasma [facility] EKG 12 channel panel [facility] Hepatitis A virus Ab [Presence] in Serum by Immunoassay [facility] Hepatitis B core ant ibody measurement [facility] Hepatitis B virus de la cruz rface Ab [Presence] in Serum [facility] Patient Education Alfred dugan me Metabolic dysfunction-associated steatotic liver disease Mediterranean diet [facility] Work Phone: Patient referral [facility] Work Phone: Urine culture [facility] Immunizations Immunization Date Immunization Notes Care Provider Hermelinda nevarez 03-30-2021 COVID-19 mRNA, Sherri nunez (Pfizer) [facility] 03-08-2021 COVID-19 mRNA, Comir enrique (Pfizer) [facility] 04-25-2019 meningococcal oligosaccharide (groups A, C, Y and W-135) diphtheria toxoid conjugate vaccine (MCV4O) [facility] 07-17-2014 diphtheria, tetanus toxoids and acellular pertussis vaccine, unspecified formulation [facility] Payers Date Payer Category Payer Private Health Insurance [id number] 2000 Unknown [id number] 1957 Unknown [id number] Unknown [place] [employer] JESSA [id number] Unknown Javi Malinetter JESSA [id number] Social History Date Type Detail Facility Start: 04-15-2024 End: 04-15-2024 Tobacco smoking status NHIS Never smoked tobacco (finding) [facility] Start: 2000 Sex Assigned At Female F [facility] Start: 10-21-2024 End: 02-05-2025 Sex Female (finding) [facility] Progress note 03-06-2025 Note Date & Type Note Facility 03-06-2025 Note [facility] Note Reason for cardiology visit follow-up HPI: 03/06/2025 Tamiko is here to follow-up after her recent testing and review findings on her heart monitor. She continues to have episode where she will feel anxious out of no where, heart will be racing, she will feel dizzy, and then when those sx's resolve she will feel fatigued. The times where she feels anxious her HR will be reading high in the 120s. She is trying to increase her fluid intake. She has cut caffeine out of her diet. She does not drink alcohol. She recently had a stress test which was negative for any ischemic changes or arrhythmias. No further episodes of CP, dyspnea. Denies orthopnea, PND, LE edema, syncope. 12/18/2024 The patient is here today for [...] also watching her heart rate with the [employer] machine and it was showing that her [...] that she does not currently use alcohol. She reports that she does not use drugs. Family History Family History Problem Relation Name Age of Onset No Known Problems Mother No Known Problems Father Atrial fibrillation Maternal Grandmother Myocarditis Maternal Grandmother Other (pacemaker) Maternal Grandmother Other (ventricular arrhythmia) Maternal Grandfather Other (pacemaker) Maternal Grandfather Allergies Ro-cet-n 100 Medications No current outpatient medications on file. Last Recorded Vitals Visit Vitals BP 113/73 (BP Location: Right arm, Patient Position: Sitting) Pulse 76 Ht 1.702 m (5' 7 ) Wt 76.7 kg (169 lb) LMP 02/24/2025 SpO2 98% BMI 26.47 kg/m??? OB Status Having periods Smoking Status Never BSA 1.9 m??? Physical Examination: GENERAL: alert and oriented [...] and symmetric in bilateral upper and lower (more content not included)... [facility] Progress note 03-06-2025 Note Date & Type Note Facility 03-06-2025 Note Patient is here toda y for an early office appointment per patients mom's request. Mom would like testing results. Per mom they want to know diagnosis, what to expect, and what problems they should look out for, due to the patient not feeling well all the time. Patient state she has lots of fatigue, feeling off, feeling down, occasional dizziness and chest soreness that comes and goes quickly. Review of Systems Constitutional: Positive for malaise/fatigue. Cardiovascular: Positive for chest pain (occasional soreness). Neurological: Positive for dizziness. [facility] Progress note 12-18-2024 Note Date & Type Note Facility 12-18-2024 Note [facility] Note Reason [...] also watching her heart rate with the [employer] machine and it was showing that her [...] rate 41 to (more content not included)... [facility] Evaluation note 12-12-2024 Note Date & Type Note Facility 12-12-2024 Evaluation note Authored April 28, 2025 11:12am 25-year-old female referred to liver clinic for evaluation of elevated bilirubin and fatty liver Ultrasound on 12/12/2024 showed hepatic steatosis - Patient has isolated indirect hyperbilirubinemia rest of LFTs are normal, blood cell counts are normal, total bilirubin < 3. I explained to the patient that this is consistent with Gilbert's which is a benign condition. - Will check viral hepatitis serologies. - Will arrange for [employer] [facility] Work Phone: Progress note 11-05-2024 Note Date & Type [...] protein 7.8, albumin (more content not included)... [facility] Evaluation note Note Date & Type Note Facility Evaluation note No assessment information [facility] Work Phone: Evaluation note Note Date & Type Note Facility Evaluation note Diagnosis Onset Date Cellulitis of right breast a darius [facility] Work Phone: Evaluation note Note Date & Type Note Facility Evaluation note Diagnosis Onset Date Resolution Chest pain acute October 21, 2024 9:20am Fatigue acute October 21, 2024 9:20am Urinary frequency acute October 21, 2024 9:20am [facility] Work Phone: Evaluation note Note Date & Type Note Facility Evaluation note Diagnosis Onset Date Resolution Elevated bilirubin acute January 7t h2024 10:31am [facility] Work Phone: Summary Purpose Family History Relationship Condition Age at Onset Recorded Date/T ben father Diabetes mellitus Unknown Advance Directives Advance Directive Response Recorded Date/ Time Advance [...] Urinary frequency October 21, 2024 9 :20am Chief Complaint Admit Date go over results February 05, 2025 10:31a m Reason for Visit Admit Date Elevated bilirubin February 05, 2025 10:31a m Chief Complaint Admit Date go over results February 05, 2025 10:31a m Refer Dr Muna Vazquez: jaundice April 10:50am Reason for Visit Admit Date Elevated bilirubin February 05, 2025 10:31a m Nonsustained ventricular tachycardia February 05, 2025 10:31am Elevated bilirubin April 28, 2025 10:5 0am Fatty liver April 28, 2025 10:5 0am Gilbert syndrome April 28, 2025 10:5 0am Additional Source Comments INFORMATION SOURCE (unrecogn ized section and content) DATE CREATED AUTHOR 09/19/2020 [facility] DATE CREATED AUTHOR AUTHOR'S ORGANIZ ATION 03/07/2025 [facility] Care Teams (unrecognized sec tion and content) Team Status: Active Member Role Status Dates Muna Vazquez MD Primary Care Provider Active Team Status: Inactive Member Role Status Dates Muna Vazquez MD Primary Care Provider Active Start: February 05, 2025 End: February 05, 2025 Muna Vazquez MD Attending Provider Active St art: February 05, 2025 End: February 05, 2025 Team Status: Inactive Member Role Status Janet Vazquez MD Primary Care Provider Active Start: April 28, 2025 End: April 28, 2025 Heidy Rojas MD Attending Provider Active Start: April 28, 2025 End: April 28, 2025 Team Status: Active Member Role Status Dates Muna Vazquez MD Primary Care Provider Active Team Status: Active Member Role Status Janet Vazquez MD Primary Care Provider Active Start: November 08, 2024 Hay Bolden MD Attending Provider Active Star t: November 08, 2024 Team Status: Inactive Member Role Status Janet Vazquez MD Primary Care Provide r, Attending Provider Active Start: February 05, 2025 End: February 05, 2025 Team Status: Inactive Member Role Status Janet Vazquez MD Primary Care Provide r, Attending Provider Active Start: April 16, 2024 End: April 16, 2024 Team Status: Inactive Member Role Status Janet Vazquez MD Primary Care Provider Active Start: June 02, 2024 End: June 02, 2024 Rylee Hogan APRN Attending Provider Active Start: June 02, 2024 End: June 02, 2024 Team Status: Inactive Member Role Status Janet Vazquez MD Primary Care Provide r, Attending Provider Active Start: October 21, 2024 End: October 21, 2024 Team Status: Inactive Member Role Status Janet Vazquez MD Primary Care Provider Active Start: February 05, 2025 End: February 05, 2025 Muna Vazquez MD Attending Provider Active St art: February 05, 2025 End: February 05, 2025 Team Status: Inactive Member Role Status Janet Vazquez MD Primary Care Provider Active Start: April 28, 2025 End: April 28, 2025 Heidy Rojas MD Attending Provider Active Start: April 28, 2025 End: April 28, 2025 Goals (unrecognized section and content) Goals may [...] BE BASED ON THE PRIMARY CLINICAL RECORDS. [facility] [employer] [facility]. provides no warranty or guarantee of the accuracy or completeness of information in this document.
--- OUTSIDE RECORDS SUMMARY | 2025-06-05 15:14 | XMS_ITS | Clinical Summary ---
Author Organization [facility] Address [address] [place] [address] Care Team Providers Care Home Therapy Clinician Name Role Phone Muna Vazquez MD Primary Care Provider [phone] Allergies Active Allergy Reactions Criticality Noted Date Comments Ro-Cet-N 100 Other 11/05/2024 Medications No known medications Active Problems Problem Noted Date Diagnosed Date SVT (supraventricular tachycardia) 03/06/2025 PAC (premature atrial contraction) 03/06/2025 PVC (premature ventricular contraction) 03/06/20 Ventricular arrhythmia 12/18/2024 Precordial pain 12/18/2024 Other chest pain 11/05/2024 Tachycardia 11/05/2024 Dizziness 11/05/2024 Serum total bilirubin elevated 11/05/2024 Encounters Date Type Department Care Team Description 03/06/2025 10:20 AM EDT Office Visit [facility] [place] [address] [place] [address] Ashleigh Dan CNP SVT (supraventricular tachycardia) (Primary Dx); Ventricular arrhythmia; PAC (premature atrial contraction); PVC (premature ventricular contraction); Other chest pain from Last 3 Months Family History Medical History Relation Name Comments No Known Problems Father pacemaker Maternal Grandfather ventricular arrhythmia Maternal Grandfather Atrial fibrillation Maternal Grandmother Myocarditis Maternal Grandmother pacemaker Maternal Grandmother No Known Problems Mother Relation Name Status Comments Father Alive Maternal Grandfather Maternal Grandmother Mother Alive Social History Tobacco Use Types Packs/Day Years Used Date Smoking Tobacco: Never Smokeless Tobacco: Never Tobacco Cessation:Counseling Given: Not Answered Alcohol Use Standard Drinks/Week Comments Not Currently 0 (1 standard drink = 0.6 oz pur e alcohol) Comments No Sex and Gender Information Value Date Recorded Sex Assigned at Female 05/02/2025 2:25 PM EDT Legal Sex Female 1:35 PM EST Gender Identity Female 05/02/2025 2:25 PM EDT Sexual Orientation Heterosexual or Straight 10/2024 2:25 PM EDT Last Filed Vital Signs Vital Sign Reading Time Taken Comments Blood Pressure 113/73 03/06/2025 10:24 AM EDT Pulse 76 03/06/2025 10:24 AM EDT Temperature - - Respiratory Rate - - Oxygen Saturation 98% 03/06/2025 10:24 AM EDT Inhaled Oxygen Concentration - - Weight 76.7 kg (169 lb) 03/06/2025 10:24 AM EDT Height 170.2 cm (5' 7 ) 03/06/2025 10:24 AM EDT Body Mass Index 26.47 03/06/2025 10:24 AM EDT Plan of Treatment Upcoming Encounters Date Type Department Care Team (Late st Contact Info) Description 07/08/2025 9:45 AM EDT Office Visit [facility] [address] [place] [address] Durga Summers MD [address] [place] [address] Health Maintenance Due Date Last Done Comments Depression Screening 2014 Varicella Vaccines (1 of 2 - 13+ 2-dose series) 2015 HPV Vaccines (1 - 3-dose series) 2017 Meningococcal B Vaccine (1 o f 2 - Standard) 2018 Pap Smear 2023 Adult Tetanus 2024 Influenza Vaccine (#1) 2025 Zoster Vaccines (1 of 2) 2052 HIB Vaccines Aged Out No longer eligi ble based on patient's age to complete this topic IPV Vaccines Aged Out No longer eligi ble based on patient's age to complete this topic Meningococcal Vaccine Aged Out No mauri cesar eligible based on patient's age to complete this topic Pneumococcal Vaccine: Pediat rics (0 to 5 Years) and At-Risk Patients (6 to 64 Years) Aged Out No longer eligible b ased on patient's age to complete this topic Rotavirus Vaccines Aged Out No longer eligible based on patient's age to complete this topic Insurance Care Teams Home Therapy Clinician Relationship Specialty Start Date End Date Muna Vazquez MD [address] [place], [place] [address]A PCP - General 11/04/24
--- OUTSIDE RECORDS SUMMARY | 2025-06-05 16:05 | XMS_ITS | CCD ---
Author Organization [facility] Care Team Providers Care Training And Development Manager Name Role Phone MUNA QUINTANILLA Attending Unavailable MUNA QUINTANILLA Consulting Unavailable MUNA QUINTANILLA Primary Care Unavailable MUNA QUINTANILLA Admitting Unavailable DAISY EDUARDO Attending Unavailable HAY BOLDEN Attending Unavailable HAY BOLDEN Attending Unavailable Muna Quintanilla MD Primary Care Provider Muna Quintanilla MD Attending Provider Heidy Rojas MD Attending Provider Muna Quintanilla MD Primary Care Provider [phone] Muna Quintanilla Primary Care Unavailable Asaad, Imad Admitting Unavailable Asatyler Imtyler Attending Unavailable Allergies Allergy Classification Reported Allergen(s) Allergy Type Date of Onset Reaction(s) Facility (7 sources) cefTRIAXone; Translations: [ceftriaxone] Drug Allergy 4 [facility] (7 sources) Cephalosporins (Antibiotic); Translations: [Cephalosporins] Allergy to substance 4 [facility] Comment on above: Onset Date: 06/25/20 13 (7 sources) Penicillins; Translations: [Penicillins] Allergy to substance 4 [facility] Comment on above: Onset Date: 06/25/20 13 (1 source) RO-CET-N 100; Translations: [RO-CET-N 100] Propensity to adverse reactions to drug (disorder) 5 [facility] Repository Medications Current Medications Medication Drug Class(es) Dates Sig (Normalized) Sig (Original) [place] (No Known Home Meds) (3 sources) Start: 02-04-2025 [place] (No Known Home Meds) Active February 04, 2025 12:00am Completed/Discontinued Medications Medication Drug Class(es) Dates Sig (Normalized) Sig (Original) ofloxacin 3 mg/ml ophthalmic solution (5 sources) Quinolone Antimicrobial Start: 06-02-2024 End: 10-21-2024 [...] mg / trimethoprim 160 mg oral tablet (6 sources) Dihydrofolate Reductase Inhibitor Antibacterial, Sulfonamide Antimicrobial Start: 04-16-2024 End: 06-02-2024 take 1 tablet by mouth twice daily Sulfamethoxazole-Trimethoprim 800-160 mg tablet Discontinued 1 TAB PO Twice daily April 16, 2024 12:00am June 02, 2024 2:42pm Problems Active Problems Problem Classification Problem Date Documented Date Episodic/Chronic Cardiac dysrhythmias (5 sources) Cardiac arrhythmia, unspecified; Translations: [Nonsustained ventricular tachycardia ] Onset: 12-18-2024 Chronic Genitourinary symptoms and ill-defined conditions (5 sources) Increased frequency of urination; Translations: [Frequency of micturition] 10-21-2024 Episodic Inflammation; infection of eye (except that caused by tuberculosis or sexually transmitteddisease) (4 sources) Conjunctivitis of right eye; Translations: [Unspecified conjunctivitis] 06-02-2024 Episodic Malaise and fatigue (5 sources) Fatigue; Translations: [Other fatigue] 10-21-2024 Episodic Nonmalignant breast conditions (6 sources) Cellulitis of breast; Translations: [Mastitis without abscess] 04-17-2024 Episodic Nonspecific chest pain (7 sources) Chest pain; Translations: [Chest pain, unspecified] Onset: 11-05-2024 10-21-2024 Episodic Other liver diseases (4 sources) Steatosis of liver; Translations: [Fatty (change of) liver, not elsewhere classified] 04-28-2025 Chronic Other liver diseases (1 source) Fatty (change of) liver, not elsewhere classified; Translations: [Fatty (change of) liver, not elsewhere classified] Onset: 05-15-2025 Chronic Other liver diseases (7 sources) Increased bilirubin level; Translations: [Unspecified jaundice] 11-27-2024 Episodic Other liver diseases (2 sources) Jaundice; Translations: [Unspecified jaundice] 04-28-2025 Episodic Other nutritional; endocrine; and metabolic disorders (4 sources) Gilbert's syndrome; Translations: [Gilbert syndrome] 04-28-2025 [...] Facil ity Office Visiton 03-06-2025 Follow-up visit [id number] Tamiko Wills 2000 F Date Provider Department Center 03/06/2025 Lluvia-DAISY EDUARDO CARD [facility] Family History Problem Relation Age of Onset No Known Problems Mother No Known Problems Father Atrial fibrillation Maternal Grandmother Myocarditis Maternal Grandmother Other Maternal Grandmother Other Maternal Grandfather Other Maternal Grandfather Family Status - Relation Status Age at Mother Alive Father Alive Maternal Grandmother Maternal Grandfather Level of Service:79116 [place] OFFICE/OUTPATIENT ESTABLISHED LOW MDM 20 MIN [facility] 36on 01-13-2025 36 Regarding routine stress [...] Dr. Bolden scheduled for next month. Normal [facility] Office Visiton 12-18-2024 Follow-up visit [id number] Sanchez 2000 F Date Provider Department Center 12/18/2024 [id number] BOLDEN [facility] CARD [facility] Family History Problem Relation Age of Onset No Known Problems Mother No Known Problems Father Atrial fibrillation Maternal Grandmother Myocarditis Maternal Grandmother Other Maternal Grandmother Other Maternal Grandfather Other Maternal Grandfather Family Status - Relation Status Age at Mother Father Maternal Grandmother Maternal Grandfather Level of Service:34453 [place] OFFICE/OUTPATIENT ESTABLISHED MOD MDM 30 MIN Reason for Visit and Comments: Dizziness [871963] - Resolved. Palpitations [025450] - Resolved. Had echo, Holter monitor, and labs. Normal [facility] 36on 11-12-2024 36 Regarding lab results from 11/08/2024: MD Anita Barnes MA Magnesium and cortisol level are normal. Total bilirubin still elevated at 2.1. Please forward result to her PCP and advise patient to follow-up with PCP to workup elevated bilirubin Spoke with patient's mother and made her aware. Lab results faxed to Dr. Quintanilla's office. Normal [facility] Globulin Calc (S) [Mass/Vol] on 11-08-2024 Globulin (S) [Mass/Vol] Serum globulin measurement by calculation (mass/volume) [facility] Laboratory - Chemistry and C hemistry - challengeon 11-08-2024 Albumin [Mass/Vol] 4.0 g/dL 3.4-5.0 [facility] ALP [Catalytic activity/Vol] 48 U/L 46-116 [facility] ALT [Catalytic activity/Vol] 23 U/L 14-59 [facility] AST [Catalytic activity/Vol] 14 U/L Low 15-37 [facility] Bilirubin [Mass/Vol] 2.1 mg/dL High 0.2-1.0 [facility] Bilirubin.direct [Mass/Vol] 0.3 mg/dL High 0.0-0.2 [facility] Magnesium [Mass/Vol] 1.9 mg/dL 1.8-2.4 [facility] Protein [Mass/Vol] 7.2 g/dL 6.4-8.2 [facility] Serum or plasma albumin/glob ulin mass ratioon 11-08-2024 Albumin/Globulin [Mass ratio] Serum or plasma albumin/globulin mass ratio [facility] Office Visiton 11-05-2024 Follow-up visit [id number] Walter Willsabdiel No 2000 F Date Provider Department Center 11/05/2024 [id number]-DTDFUIHAY BOLDEN CARD [facility] Family History Problem Relation Age of Onset No Known Problems Mother No Known Problems Father Atrial fibrillation Maternal Grandmother Myocarditis Maternal Grandmother Other Maternal Grandmother Other Maternal Grandfather Other Maternal Grandfather Family Status - Relation Status Age at Mother Father Maternal Grandmother Maternal Grandfather Level of Service:54788 [place] OFFICE/OUTPATIENT NEW MODERATE MDM 45 MINUTES Reason for Visit and Comments: Palpitations [] - Had EKG and labs on 10/21/2024. Mother said she had EKG and Holter monitor back in 2019. Shortness of Breath [] Chest Pain [159206] - Had an episode of chest pain w/ SOB recently. Mother states her HR was around 115 during this time. She said HR came down very quickly to 66. Fatigue [46] - Says she feels super lethargic . Normal [facility] Vital Signs Date Time Vital Sign Value Performing Clinician Jaclyn hatch 04-28-2025 11:03-0400 Body height 170.18 cm Muna Quintanilla MD Work Phone: [facility] 04-28-2025 11:03-0400 Body mass index (BMI) [Ratio] 26.2 kg/m2 Muna Quintanilla MD Work Phone: [facility] 04-28-2025 11:03-0400 Body weight 75.74 kg Muna Quintanilla MD Work Phone: [facility] 04-28-2025 11:03-0400 Diastolic blood pressure 83 mm[Hg] Muna Quintanilla MD Work Phone: [facility] 04-28-2025 11:03-0400 Heart rate 83 /min Muna Quintanilla MD Work Phone: [facility] 04-28-2025 11:03-0400 Systolic blood pressure 133 mm[Hg] Muna Quintanilla MD Work Phone: [facility] 02-05-2025 10:35-0400 Body height 170.18 cm [facility] 02-05-2025 10:35-0400 Body mass index (BMI) [Ratio] 26.3 kg/m2 [facility] 02-05-2025 10:35-0400 Body weight 76.2 kg [facility] 02-05-2025 10:35-0400 Diastolic blood pressure 74 mm[Hg] [facility] 02-05-2025 10:35-0400 Heart rate 90 /min [facility] 02-05-2025 10:35-0400 Systolic blood pressure 107 mm[Hg] [facility] 10-21-2024 09:21-0500 Body height 170.18 cm [facility] 10-21-2024 09:21-0500 Body mass index (BMI) [Ratio] 25.7 kg/m2 [facility] 10-21-2024 09:21-0500 Body weight 74.38 kg [facility] 10-21-2024 09:21-0500 Diastolic blood pressure 72 mm[Hg] [facility] 10-21-2024 09:21-0500 Heart rate 94 /min [facility] 10-21-2024 09:21-0500 Systolic blood pressure 111 mm[Hg] [facility] 06-02-2024 14:45-0400 Body height 170.18 cm [facility] 06-02-2024 14:45-0400 Body mass index (BMI) [Ratio] 25.7 kg/m2 [facility] 06-02-2024 14:45-0400 Body temperature 98.9 [degF] [facility] 06-02-2024 14:45-0400 Body weight 74.44 kg [facility] 06-02-2024 14:45-0400 Diastolic blood pressure 78 mm[Hg] [facility] 06-02-2024 14:45-0400 Heart rate 105 /min [facility] 06-02-2024 14:45-0400 SaO2% (BldA) [Mass fraction] 99 % [facility] 06-02-2024 14:45-0400 Systolic blood pressure 119 mm[Hg] [facility] 04-17-2024 13:41-0400 Body height 170.18 cm [facility] 04-16-2024 10:55-0400 Body height 170.18 cm [facility] 04-16-2024 10:55-0400 Body mass index (BMI) [Ratio] 25 kg/m2 [facility] 04-16-2024 10:55-0400 Body weight 72.57 kg [facility] 04-16-2024 10:55-0400 Diastolic blood pressure 76 mm[Hg] [facility] 04-16-2024 10:55-0400 Heart rate 84 /min [facility] 04-16-2024 10:55-0400 Systolic blood pressure 107 mm[Hg] [facility] Encounters Encounter Date Encounter Type Care Provider Facility Start: 05-15-2025 End: 05-15-2025 Patient encounter procedure Heidy Rojas MD -[facility] Work Phone: Start: 05-15-2025 End: 05-15-2025 ambulatory Muna Quintanilla MD Work Phone: [facility] Work Phone: Start: 04-28-2025 End: 04-28-2025 ambulatory Muna Quintanilla MD Work Phone: [facility] Work Phone: Start: 04-28-2025 End: 04-28-2025 Patient encounter procedure Heidy Rojas MD -[facility] Work Phone: Start: 03-06-2025 End: 03-06-2025 ambulatory [facility] Start: 02-05-2025 End: 02-05-2025 ambulatory [facility] Work Phone: Start: 02-05-2025 End: 02-05-2025 Patient encounter procedure [facility] Work Phone: Start: 12-18-2024 End: 12-18-2024 ambulatory [facility] Start: 11-08-2024 Non-patient / Non-visit [facility] Work Phone: Start: 11-05-2024 End: 11-05-2024 ambulatory [facility] Start: 10-21-[address] [facility] Start: 10-21-2024 End: 10-21-2024 ambulatory [facility] Work Phone: Start: 10-21-2024 End: 10-21-2024 Patient encounter procedure [facility] Work Phone: Start: 06-02-2024 End: 06-02-2024 ambulatory [facility] Work Phone: Start: 06-02-2024 End: 06-02-2024 Patient encounter procedure [facility] Work Phone: Start: 04-16-2024 End: 04-16-2024 ambulatory [facility] Work Phone: Start: 04-16-2024 End: 04-16-2024 Patient encounter procedure [facility] Work Phone: Start: 09-04-2020 End: 09-05-2020 Patient encounter procedure MUNA QUINTANILLA Facility: Procedures Date Procedure Procedure Detail Performing Clinician Start: 05-15-2025 Ultrasound elastogra phy of liver Muna Quintanilla MD Work Phone: Start: 11-08-2024 Cortisol total Comment on above: Please Note: The ref erence interval and flagging for this test is for an AM collection. If this is a PM collection please use: Cortisol PM: 2.3-11.9Performed at: [facility] [address] [id number] Director: Sadiq Goodrich PhD, Phone: [phone] Plan of Treatment Date Care Activity Detail Author Start: 02-05-2025 Patient referral [facility] Work Phone: Comprehensive metabo lic 2000 panel - Serum or Plasma [facility] EKG 12 channel panel [facility] Hepatitis A virus Ab [Presence] in Serum by Immunoassay [facility] Hepatitis B core ant ibody measurement [facility] Hepatitis B virus de la cruz rface Ab [Presence] in Serum [facility] Patient Education Alfred dugan me Metabolic dysfunction-associated steatotic liver disease Mediterranean diet [facility] Work Phone: Patient referral [facility] Work Phone: Urine culture [facility] Immunizations Immunization Date Immunization Notes Care Provider Fa cility 03-30-2021 COVID-19 mRNA, Comir enrique (Pfizer) [facility] 03-08-2021 COVID-19 mRNA, Comir enrique (Pfizer) [facility] 04-25-2019 meningococcal oligosaccharide (groups A, C, Y and W-135) diphtheria toxoid conjugate vaccine (MCV4O) [facility] 07-17-2014 diphtheria, tetanus toxoids and acellular pertussis vaccine, unspecified formulation [facility] Payers Date Payer Category Payer Self-pay 2024 Private Health Insurance [id number] 2000 Unknown [id number] 1959 Unknown [id number] Unknown Javi Malinetter JESSA [id number] Unknown Javi Maldonador JESSA [id number] Unknown [id number] Social History Date Type Detail Facility Start: 04-15-2024 End: 04-15-2024 Tobacco smoking status NHIS Never smoked tobacco (finding) [facility] Start: 2000 Sex Assigned At Female F [facility] Start: 10-21-2024 End: 02-05-2025 Sex Female (finding) [facility] Goals Date Patient Goal Desired Activity /State Clinical Notes 11-05-2024 to 04-28-2025 Note Date & Type Note Facility 04-28-2025 Evaluation note Authored April 28, 2025 11:12am [...] hepatitis serologies. - Will arrange for FibroScan [facility] Work Phone: [phone]) 220-276106-05-[facility] Reason for cardiology [...] also watching her heart rate with the Amadix machine and it was showing that her [...] bilateral upper and lower (more content not included)...[facility]06-05-2025 Note Patient is here today for an early office appointment per patients [...] chest pain (occasional soreness). Neurological: Positive for dizziness.[facility] 12-18-2024 [facility] Reason for cardiology [...] also watching her heart rate with the Amadix machine and it was showing that her [...] heart rate 41 to (more content not included)...[facility]03-13-2025 Evaluation note* Author Heidy [facility] Authored April 28, 2025 11:1 2am 25-year-old female referred to liver clinic for [...] hepatitis serologies. - Will arrange for FibroScan [facility] Work Phone: 1(658) 547-198802-04-2025 [facility] Reason for cardiology [...] also watching her heart rate with the Amadix machine and it was showing that her [...] total protein 7.8, albumin (more content not included)...[facility]: [facility]* Diagnosis Onset Date Resolution Status Cellulitis of right breast a cute [facility] Work Phone: Evaluation note* Diagnosis Onset Date Resolution Status Admit Date Chest pain acute October 21, 2024 9:20am Fatigue acute October 21, 2024 9:20am Urinary frequency acute October 21, 2024 9:20am [facility] Work Phone: Evaluation note* Diagnosis Onset Date Resolution Status Admit Date Elevated bilirubin acute January 10:31am [facility] Work Phone: Reason for referral (narrative)No reason for referral [facility] Work Phone: Summary Purpose Family History No [...] 05, 2025 10:31a m Refer Dr Muna Quintanilla: jaundice April 10:50am Reason for Visit Admit Date Elevated bilirubin February 05, 2025 10:31a m Nonsustained ventricular tachycardia February 05, 2025 10:31am Elevated bilirubin April 28, 2025 10:5 0am Fatty liver April 28, 2025 10:5 0am Gilbert syndrome April 28, 2025 10:5 0am Chief Complaint Admit Date Refer Dr Muna Quintanilla: jaundice April 10:50am fatty liver May 15, 2025 12 :35pm Reason for Visit Admit Date Elevated bilirubin April 28, 2025 10:5 0am Fatty liver April 28, 2025 10:5 0am Gilbert syndrome April 28, 2025 10:5 0am Additional Source Comments INFORMATION SOURCE (unrecogn ized section and content) DATE CREATED AUTHOR 09/19/2020 Jessie almeida DATE CREATED AUTHOR AUTHOR'S ORGANIZ ATION 03/07/2025 [facility] DATE CREATED AUTHOR AUTHOR'S ORGANIZ ATION 06/01/2025 [facility] Care Teams (unrecognized sec tion and content) Team Status: Active Member Role Status Dates Muna Quintanilla MD Primary Care Provider Active Team Status: Inactive Member Role Status Janet Quintanilla MD Primary Care Provider Active Start: February 05, 2025 End: February 05, 2025 Muna Quintanilla MD Attending Provider Active St art: February 05, 2025 End: February 05, 2025 Team Status: Inactive Member Role Status Janet Quintanilla MD Primary Care Provider Active Start: April 28, 2025 End: April 28, 2025 Heidy Rojas MD Attending Provider Active Start: April 28, 2025 End: April 28, 2025 Team Status: Active Member Role Status Janet Quintanilla MD Primary Care Provider Active Start: November 08, 2024 Hay Bolden MD Attending Provider Active Star t: November 08, 2024 Team Status: Inactive Member Role Status Janet Quintanilla MD Primary Care Provide r, Attending Provider Active Start: February 05, 2025 End: February 05, 2025 Team Status: Inactive Member Role Status Janet Quintanilla MD Primary Care Provide r, Attending Provider Active Start: April 16, 2024 End: April 16, 2024 Team Status: Inactive Member Role Status Janet Quintanilla MD Primary Care Provider Active Start: June 02, 2024 End: June 02, 2024 Rylee Hogan APRN Attending Provider Active Start: June 02, 2024 End: June 02, 2024 Team Status: Inactive Member Role Status Janet Quintanilla MD Primary Care Provide r, Attending Provider Active Start: October 21, 2024 End: October 21, 2024 Team Status: Inactive Member Role Status Janet Quintanilla MD Primary Care Provider Active Start: May 15, 2025 End: May 15, 2025 Heidy Rojas MD Attending Provider Active Start: May 15, 2025 End: May 15, 2025 Goals (unrecognized section and content) Goals [...] BE BASED ON THE PRIMARY CLINICAL RECORDS. [employer] [facility]. provides no warranty or guarantee of the accuracy or completeness of information in this document.
[2025-06-07 04:09] LABS: Hep A Ab, Total Negative (Negative)
== END 2025-06-05 15:13 | disposition home or self-care (01) ==
PROVIDERS: PCP Family Medicine; Visit Provider Internal Medicine
DX: K76.0 Fatty (change of) liver, not elsewhere classified (principal)
CPT/HCPCS: 36415; 86317; 86704; 86708; 86803; 87340

== ENCOUNTER 2025-07-10 21:10 | Emergency (ER) | payer OTHER, SELFPAY ==
[2025-07-10 21:15] VITALS: BP 140/92; PULSE 87; TEMP 36.8; O2SAT 98; BMI 25.8
--- OUTSIDE RECORDS SUMMARY | 2025-07-10 21:16 | XMS_ITS | CCD ---
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 Name Role Phone MUNA QUINTANILLA Attending Unavailable MUNA QUINTANILLA Consulting Unavailable MUNA QUINTANILLA Primary Care Unavailable MUNA QUINTANILLA Admitting Unavailable Muna Quintanilla MD Primary Care Provider Muna Quintanilla MD Attending Provider [phone] Heidy Rojas MD Attending Provider [phone] Muna Quintanilla MD Primary Care Provider Muna Quintanilla Primary Care Unavailable Crystal Imtyler Admitting Unavailable Heidy Rojas Attending Unavailable Heidy Rojas MD Other Provider Raffaele Azevedo MD Attending Provider HAY BOLDEN Attending Unavailable HAY BOLDEN Attending Unavailable DAISY EDUARDO Attending Unavailable DURGA SUMMERS Attending Unavailable Allergies Allergy Classification Reported Allergen(s) Allergy Type Date of Onset Reaction(s) Facility (8 sources) cefTRIAXone; Translations: [ceftriaxone] Drug Allergy 4 [facility] (8 sources) Cephalosporins (Antibiotic); Translations: [Cephalosporins] Allergy to substance 4 [facility] Comment on above: Onset Date: 06/25/20 13 (8 sources) Penicillins; Translations: [Penicillins] Allergy to substance 4 [facility] Comment on above: Onset Date: 06/25/20 13 (1 source) RO-CET-N 100; Translations: [RO-CET-N 100] Propensity to adverse reactions to drug (disorder) 5 [facility] Repository Medications Current Medications Medication Drug Class(es) Dates Sig (Normalized) Sig (Original) Bivalve (No Known Home Meds) (4 sources) Start: 02-04-2025 Bivalve (No Known Home Meds) Active February 04, 2025 12:00am Completed/Discontinued Medications Medication Drug Class(es) Dates Sig (Normalized) Sig (Original) ofloxacin 3 mg/ml ophthalmic solution (6 sources) Quinolone Antimicrobial Start: 06-02-2024 End: 10-21-2024 [...] mg / trimethoprim 160 mg oral tablet (7 sources) Dihydrofolate Reductase Inhibitor Antibacterial, Sulfonamide Antimicrobial Start: 04-16-2024 End: 06-02-2024 take 1 tablet by mouth twice daily Sulfamethoxazole-Trimethoprim 800-160 mg tablet Discontinued 1 TAB PO Twice daily April 16, 2024 12:00am June 02, 2024 2:42pm Problems Active Problems Problem Classification Problem Date Documented Date Episodic/Chronic Cardiac dysrhythmias (6 sources) Nonsustained ventricular tachycardia ; Translations: [Nonsustained ventricular tachycardia] Onset: 12-18-2024 02-05-2025 Chronic Genitourinary symptoms and ill-defined conditions (6 sources) Increased frequency of urination; Translations: [Frequency of micturition] 10-21-2024 Episodic Inflammation; infection of eye (except that caused by tuberculosis or sexually transmitteddisease) (5 sources) Conjunctivitis of right eye; Translations: [Unspecified conjunctivitis] 06-02-2024 Episodic Malaise and fatigue (6 sources) Fatigue; Translations: [Other fatigue] 10-21-2024 Episodic Nonmalignant breast conditions (7 sources) Cellulitis of breast; Translations: [Mastitis without abscess] 04-17-2024 Episodic Other liver diseases (6 sources) Steatosis of liver; Translations: [Fatty (change of) liver, not elsewhere classified] 04-28-2025 Chronic Other liver diseases (1 source) Fatty (change of) liver, not elsewhere classified; Translations: [Fatty (change of) liver, not elsewhere classified] Onset: 05-15-2025 Chronic Other liver diseases (9 sources) Increased bilirubin level; Translations: [Unspecified jaundice] 11-27-2024 Episodic Other liver diseases (3 sources) Jaundice; Translations: [Unspecified jaundice] 04-28-2025 Episodic Other nutritional; endocrine; and metabolic disorders (7 sources) Gilbert's syndrome; Translations: [Gilbert syndrome] 04-28-2025 Chronic Unclassified (1 source) R17 - Unspecified jaundice Past or Other Problems Problem Classification Problem Date Documented Da te Episodic/Chronic Cardiac dysrhythmias (6 sources) Tachycardia, unspecified; Translations: [TACHYCARDIA UNSPECIFIED] Onset: 09-04-2020 Episodic Conditions associated with dizziness or vertigo (2 sources) Dizziness and giddiness; Translations: [Dizziness and giddiness] Onset: 11-05-2024 Episodic Nonspecific chest pain (8 sources) Chest pain; Translations: [Chest pain, unspecified] Onset: 11-05-2024 10-21-2024 Episodic Other liver diseases (3 sources) Unspecified jaundice; Translations: [Disorders of bilirubin excretion] Onset: 11-05-2024 02-05-2025 Episodic Results Test Name Value Interpretation Reference Range Facility Office Visiton 07-08-2025 Follow-up visit [id number] Lili Wills 2000 Provider Department Center 07/08/2025 DURGA LARIOS FUAD Vasques Family History Problem Relation Age of Onset No Known Problems Mother No Known Problems Father Atrial fibrillation Maternal Grandmother Myocarditis Maternal Grandmother Other Maternal Grandmother Other Maternal Grandfather Other Maternal Grandfather Family Status - Relation Status Age at Mother Alive Father Alive Maternal Grandmother Maternal Grandfather Level of Service:96141 CT OFFICE/OUTPATIENT NEW MODERATE MDM 45 MINUTES Normal [facility] Orders Onlyon 07-08-2025 Orders Only [id number] Lili Wills 2000 Date Provider Department Center 07/08/2025 LEXY KEYS FUAD Vasques Family History Problem Relation Age of Onset No Known Problems Mother No Known Problems Father Atrial fibrillation Maternal Grandmother Myocarditis Maternal Grandmother Other Maternal Grandmother Other Maternal Grandfather Other Maternal Grandfather Family Status - Relation Status Age at Mother Alive Father Alive Maternal Grandmother Maternal Grandfather Normal [facility] Hepatitis A virus Ab [Presen ce] in Serum by ImmunoassayOrdered By: Heidy Rojas on 06-05-2025 HAV Ab IA Ql (S) Negative Negative [facility] Comment on above: Comment: The HAV tot al antibody assay detects both IgG andIgM but does not differentiate between them. A negativeresult suggests susceptibility to infection. A positiveresult could be due to vaccination, previously resolvedinfection or active infection. Testing for HAV IgM shouldbe performed if active HAV infection is suspected. [facility]ers profiles that will automatically reflex positive HAVtotal antibody results to IgM (e.g., panel #[id number] HAVAntibody w/ Rfx).Performed at: [facility] [place], [place] [id number] Director: Sadiq Goodrich PhD, Phone: [phone] Hepatitis B virus surface Ab [Presence] in SerumOrdered By: Heidy Rojas on 06-05-2025 HBV surface Ab Ql (S) 63.4 mIU/mL Immunity>10 F [facility] Comment on above: Status of Immunity A nti-HBs Level Inconsistent with Immunity 0.0 - 10.0Consistent with Immunity >10.0 Hepatitis B virus surface Ag [Presence] in Serum or Plasma by ImmunoassayOrdered By: Heidy Rojas on 06-05-2025 HBV surface Ag IA Ql Negative Negative [facility] No Panel InformationOrdered By: Imad Asaad on 06-05-2025 Hepatitis B Core Total Antibody Negative Negative [facility] Hepatitis C Interpretation Comment . [facility] Comment on above: Not infected with HC V unless early or acute infection issuspected (which may be delayed in an immunocompromisedindividual), or other evidence exists to indicate HCVinfection.Performed at: [facility] [place], [place] [id number] Director: Sadiq Goodrich PhD, Phone: [phone] Serum or plasma hepatitis C virus antibody signal/cutoff ratio by immunoassay (relatiOrdered By: Heidy Rojas on 06-05-2025 HCV Ab Signal/Cutoff IA [Rel units/Vol] Non-Reactive Non Reactive [facility] Office Visiton 03-06-2025 Follow-up visit [id number] Lili Wills Marybel 2000 F Date Provider Department Center 03/06/2025 DAISY RAMÍREZ Family History Problem Relation Age of Onset No Known Problems Mother No Known Problems Father Atrial fibrillation Maternal Grandmother Myocarditis Maternal Grandmother Other Maternal Grandmother Other Maternal Grandfather Other Maternal Grandfather Family Status - Relation Status Age at Mother Alive Father Alive Maternal Grandmother Maternal Grandfather Level of Service:71239 CT OFFICE/OUTPATIENT ESTABLISHED LOW MDM 20 MIN Normal [facility] 36on 01-13-2025 36 Regarding routine stress [...] Bolden scheduled for next month. Normal [facility] Office Visiton 12-18-2024 Follow-up visit [id number] Lili Wills Marybel 2000 F Date Provider Department Center 12/18/2024 [id number] QUISPE Family History Problem Relation Age of Onset No Known Problems Mother No Known Problems Father Atrial fibrillation Maternal Grandmother Myocarditis Maternal Grandmother Other Maternal Grandmother Other Maternal Grandfather Other Maternal Grandfather Family Status - Relation Status Age at Mother Father Maternal Grandmother Maternal Grandfather Level of Service:55616 CT OFFICE/OUTPATIENT ESTABLISHED MOD MDM 30 MIN Reason for Visit and Comments: Dizziness [] - Resolved. Palpitations [] - Resolved. Had echo, Holter monitor, and labs. Normal [facility] 36on 11-12-2024 36 Regarding lab result s from 11/08/2024: MD Anita Barnes MA Magnesium and cortisol level are normal. Total bilirubin still elevated at 2.1. Please forward result to her PCP and advise patient to follow-up with PCP to workup elevated bilirubin Spoke with patient's mother and made her aware. Lab results faxed to Dr. Quintanilla's office. Normal [facility] Globulin Calc (S) [Mass/Vol] on 11-08-2024 Globulin (S) [Mass/Vol] Serum globulin measurement by calculation (mass/volume) [facility] Laboratory - Chemistry and C hemistry - challengeon 11-08-2024 Albumin [Mass/Vol] 4.0 g/dL 3.4-5.0 [facility] ALP [Catalytic activity/Vol] 48 U/L 46-116 [facility] ALT [Catalytic activity/Vol] 23 U/L 14-59 [facility] AST [Catalytic activity/Vol] 14 U/L Low 15-37 [facility] Bilirubin [Mass/Vol] 2.1 mg/dL High 0.2-1.0 [facility] Bilirubin.direct [Mass/Vol] 0.3 mg/dL High 0.0-0.2 [facility] Magnesium [Mass/Vol] 1.9 mg/dL 1.8-2.4 [facility] Protein [Mass/Vol] 7.2 g/dL 6.4-8.2 [facility] Serum or plasma albumin/glob ulin mass ratioon 11-08-2024 Albumin/Globulin [Mass ratio] Serum or plasma albumin/globulin mass ratio [facility] Office Visiton 11-05-2024 Follow-up visit [id number] Lili Wills 2000 F Date Provider Department Center 11/05/2024 [id number] BOLDEN FUAD Vasques Family History Problem Relation Age of Onset No Known Problems Mother No Known Problems Father Atrial fibrillation Maternal Grandmother Myocarditis Maternal Grandmother Other Maternal Grandmother Other Maternal Grandfather Other Maternal Grandfather Family Status - Relation Status Age at Mother Father Maternal Grandmother Maternal Grandfather Level of Service:87711 CT OFFICE/OUTPATIENT NEW MODERATE MDM 45 MINUTES Reason for Visit and Comments: Palpitations [811735] - Had EKG and labs on 10/21/2024. Mother said she had EKG and Holter monitor back in 2019. Shortness of Breath [222639] Chest Pain [624712] - Had an episode of chest pain w/ SOB recently. Mother states her HR was around 115 during this time. She said HR came down very quickly to 66. Fatigue [46] - Says she feels super lethargic . Normal [facility] Vital Signs Date Time Vital Sign Value Performing Clinician Faci lity 06-19-2025 10:22-0400 Body height 170.18 cm Muna Quintanilla MD Work Phone: [facility] 06-19-2025 10:22-040 Body mass index (BMI) [Ratio] 26.3 kg/m2 Muna Quintanilla MD Work Phone: [facility] 06-19-2025 10:22-0400 Body weight 76.2 kg Muna Quintanilla MD Work Phone: [facility] 04-28-2025 11:03-0400 Body height 170.18 cm Muna Quintanilla MD Work Phone: [facility] 04-28-2025 11:03-0400 Body mass index (BMI) [Ratio] 26.2 kg/m2 Muna Quintanilla MD Work Phone: [facility] 04-28-2025 11:03-0400 Body weight 75.74 kg Muna Quintanilla MD Work Phone: [facility] 04-28-2025 11:03-0400 Diastolic blood pressure 83 mm[Hg] Muna Quintanilla MD Work Phone: [facility] 04-28-2025 11:03-0400 Heart rate 83 /min Muna Quintanilla MD Work Phone: [facility] 04-28-2025 11:03-0400 Systolic blood pressure 133 mm[Hg] Muna Quintanilla MD Work Phone: [facility] 02-05-2025 10:35-0400 Body height 170.18 cm [facility] 02-05-2025 10:35-0400 Body mass index (BMI) [Ratio] 26.3 kg/m2 [facility] 02-05-2025 10:35-0400 Body weight 76.2 kg [facility] 02-05-2025 10:35-0400 Diastolic blood pressure 74 mm[Hg] [facility] 02-05-2025 10:35-0400 Heart rate 90 /min [facility] 02-05-2025 10:35-0400 Systolic blood pressure 107 mm[Hg] [facility] 10-21-2024 09:21-0500 Body height 170.18 cm [facility] 10-21-2024 09:21-0500 Body mass index (BMI) [Ratio] 25.7 kg/m2 [facility] 10-21-2024 09:21-0500 Body weight 74.38 kg [facility] 10-21-2024 09:21-0500 Diastolic blood pressure 72 mm[Hg] [facility] 10-21-2024 09:21-0500 Heart rate 94 /min [facility] 10-21-2024 09:21-0500 Systolic blood pressure 111 mm[Hg] [facility] 06-02-2024 14:45-0400 Body height 170.18 cm [facility] 06-02-2024 14:45-0400 Body mass index (BMI) [Ratio] 25.7 kg/m2 [facility] 06-02-2024 14:45-0400 Body temperature 98.9 [degF] [facility] 06-02-2024 14:45-0400 Body weight 74.44 kg [facility] 06-02-2024 14:45-0400 Diastolic blood pressure 78 mm[Hg] [facility] 06-02-2024 14:45-0400 Heart rate 105 /min [facility] 06-02-2024 14:45-0400 SaO2% (BldA) [Mass fraction] 99 % [facility] 06-02-2024 14:45-0400 Systolic blood pressure 119 mm[Hg] [facility] 04-17-2024 13:41-0400 Body height 170.18 cm [facility] 04-16-2024 10:55-0400 Body height 170.18 cm [facility] 04-16-2024 10:55-0400 Body mass index (BMI) [Ratio] 25 kg/m2 [facility] 04-16-2024 10:55-0400 Body weight 72.57 kg [facility] 04-16-2024 10:55-0400 Diastolic blood pressure 76 mm[Hg] [facility] 04-16-2024 10:55-0400 Heart rate 84 /min [facility] 04-16-2024 10:55-0400 Systolic blood pressure 107 mm[Hg] [facility] Encounters Encounter Date Encounter Type Care Provider Facility Start: 07-08-2025 End: 07-08-2025 ambulatory DURGA [facility] Start: 06-19-2025 End: 06-19-2025 ambulatory Muna Quintanilla MD Work Phone: [facility] Work Phone: Start: 06-19-2025 End: 06-19-2025 Patient encounter procedure Heidy Rojas MD -[facility] Work Phone: Start: 06-05-2025 Non-patient / Non-visit Heidy Amin -[facility] Work Phone: Start: 05-15-2025 End: 05-15-2025 Patient encounter procedure Heidy Rojas MD -[facility] Work Phone: Start: 05-15-2025 End: 05-15-2025 ambulatory Muna Quintanilla MD Work Phone: [facility] Work Phone: Start: 05-15-2025 Non-patient / Non-visit Raffaele Richey MD -[facility] Work Phone: Start: 04-28-2025 End: 04-28-2025 ambulatory Muna Quintanilla MD Work Phone: [facility] Work Phone: Start: 04-28-2025 End: 04-28-2025 Patient encounter procedure Heidy Rojas MD -[facility] Work Phone: Start: 03-06-2025 End: 03-06-2025 ambulatory [facility] Start: 02-05-2025 End: 02-05-[address] [facility] Work Phone: Start: 02-05-2025 End: 02-05-2025 Patient encounter procedure [facility] Work Phone: Start: 12-18-2024 End: 12-18-2024 ambulatory [facility] Start: 11-08-2024 Non-patient / Non-visit [facility] Work Phone: Start: 11-05-2024 End: 11-05-2024 ambulatory [facility] Start: 10-21-2024 Patient encounter status [facility] Start: 10-21-2024 End: 10-21-[address] [facility] Work Phone: Start: 10-21-2024 End: 10-21-2024 Patient encounter procedure [facility] Work Phone: Start: 06-02-2024 End: 06-02-[address] [facility] Work Phone: Start: 06-02-2024 End: 06-02-2024 Patient encounter procedure [facility] Work Phone: Start: 04-16-2024 End: 04-16-[address] [facility] Work Phone: Start: 04-16-2024 End: 04-16-2024 Patient encounter procedure [facility] Work Phone: Start: 09-04-2020 End: 09-05-2020 Patient encounter procedure MUNA QUINTANILLA Facility:[facility]1 Procedures Date Procedure Procedure Detail Performing Clinician Start: 05-15-2025 Ultrasound elastogra phy of liver Muna Quintanilla MD Work Phone: Start: 11-08-2024 Cortisol total Comment on above: Please Note: The ref erence interval and flagging for this test is for an AM collection. If this is a PM collection please use: Cortisol PM: 2.3-11.9Performed at: [facility] [address] [id number] Director: Sadiq Goodrich PhD, Phone: [phone] Plan of Treatment Date Care Activity Detail Author Start: 02-05-2025 Patient referral [facility] Work Phone: Comprehensive metabo lic 2000 panel - Serum or Plasma [facility] EKG 12 channel panel [facility] Hepatitis A virus Ab [Presence] in Serum by Immunoassay [facility] Hepatitis B core ant ibody measurement [facility] Hepatitis B virus de la cruz rface Ab [Presence] in Serum [facility] Patient Education Alfred biggs Metabolic dysfunction-associated steatotic liver disease Mediterranean diet [facility] Work Phone: Patient referral [facility] Work Phone: Urine culture [facility] Immunizations Immunization Date Immunization Notes Care Provider Fa cility 03-30-2021 COVID-19 mRNA, Comir enrique (Pfizer) [facility] 03-08-2021 COVID-19 mRNA, Comir enrique (Pfizer) [facility] 04-25-2019 meningococcal oligosaccharide (groups A, C, Y and W-135) diphtheria toxoid conjugate vaccine (MCV4O) [facility] 07-17-2014 diphtheria, tetanus toxoids and acellular pertussis vaccine, unspecified formulation [facility] Payers Date Payer Category Payer Self-pay 2024 Private Health Insurance [id number] 2002 Unknown [id number] 1959 Unknown [id number] Unknown Javi Garg JSESA [id number] Unknown Javi Garg [facility] [id number] Unknown [id number] Social History Date Type Detail Facility Start: 04-15-2024 End: 04-15-2024 Tobacco smoking status NHIS Never smoked tobacco (finding) [facility] Start: 2000 Sex Assigned At Female F [facility] Start: 10-21-2024 End: 02-05-2025 Sex Female (finding) [facility] Goals Date Patient Goal Desired Activity /State Clinical Notes 11-05-2024 to 07-08-2025 Note Date & Type Note Facility 07-08-2025 Note [place] [facility] Consult Note [place] [facility] - [facility] Reason for visit: palpitations HPI: Lili Wills is a 25 y.o. year is here today per Josephine Chavez request for SVT, PAC, PVC. Patient states she feels like the arrhythmia is getting worse. Patient states she has been having episodes at night where she is swooning and can't breath, and nausea. She was previously seen by Dr. Hay Bolden who evaluated her for history of chest discomfort as well as palpitations. She states that she has been having frequent episodes where she feels anxious with associated heart rate in the 120s following which she feels quite lethargic and lightheaded. She has an Apple Watch which revealed that her heart rate being elevated is likely A-fib and hence was seen by cardiology team. She was given an treadmill exercise stress test which was negative for ischemia or any arrhythmias She had a Holter monitor that was placed from 11/05/2024 to 11/19/2024 which revealed episodes of wide-complex tachycardia that lasted for a max of 4.6 seconds that was seen on 11/14/2024 at 7:32 PMAnd other episodes of nonsustained atrial tachycardia of 2-second duration. Max heart rate of 160 beats were noted on 11/16/2024 at 5:30 PM which correlated with exercise PMH: Medical History[1] PSH: Surgical History[2] SH: Social Drivers of Health Tobacco Use: Low Risk (07/08/2025) Patient History Smoking Tobacco Use: Never Smokeless Tobacco Use: Never Passive Exposure: Not on file Alcohol Use: Not on file Financial Resource Strain: Not on file Food Insecurity: Not on file Transportation Needs: Not on file Physical Activity: Not on file Stress: Not on file Social Connections: Not on file Intimate Partner Violence: Not on file Depression: Not on file Housing Stability: Not on file Utilities: Not on file Health Literacy: Not on file Allergies: Allergies[3] Weight: 75.3kg Visit Vitals BP 110/78 (BP Location: Right arm, Patient Position: Sitting) Pulse 86 Ht 1.702 m (5' 7 ) Wt 75.3 kg (166 lb) SpO2 97% BMI 26.00 kg/m??? OB Status Having periods Smoking Status Never BSA 1.89 m??? Meds: Medications Ordered Prior to Encounter[4] ROS: Review of Systems Cardiovascular: Positive for irregular heartbeat and palpitations. Gastrointestinal: Positive for nausea. Neurological: Positive for dizziness and light-headedness. Physical Exam: Constitutional General Appearance: well-nourished, well-developed, appears stated age Level of Distress: comfortable Eyes MONICA Neck Neck: supple, trachea midline Carotid Arteries: bilateral normal upstroke, no bruits Jugular Veins: normal jugular venous pressure Thyroid: not enlarged Lungs Respiratory Effort: unlabored Chest Exam: normal curvature, no thoracic deformity Auscultation: clear, no wheezing, no rales, no rhonchi Cardiovascular Chest wall: Rate And Rhythm: regular Heart Sounds: normal S1, normal s2, no gallop Systolic Murmur: not heard Diastolic Murmur: not heard Extremities: no cyanosis, no edema, no peripheral signs of emboli Peripheral Pulses Radial Pulse: normal Abdomen Inspection and Palpation: soft, non distended, no bruit, non tender Neurologic Gait: normal gait Labs: @LABRESULTS@ No results found for: CHOLESTEROL TOTAL , HDL , LDL CALC , LDL DIRECT , TRIGLYCERIDES , TSH , T3 TOTAL , T4 TOTAL , THYROID PEROXIDASE AB , BNP EKG: No results found for this or any previous visit (from the past 4464 hours). Echo: 12/02/2024 Stress test: Coronary angiogram: @CATH@ Diagnostic Imaging: Holter monitor Assessment and Plan: - palpitations with evidence of nonsustained wide-complex tachycardia as well as long RP tachycardia that appeared to be more consistent with sinus tach. She continues to have symptoms and since has been no clear etiology we will proceed with a loop monitor. Durga Summers MD Cardiac Electrophysiology [facility] [1] Past Medical History: Diagnosis Date Abnormal ECG Gilbert syndrome [2] History reviewed. No pertinent surgical history. [3] Allergies Allergen Reactions Ro-Cet-N 100 Other [4] No current outpatient medications on file prior to visit. No current facility-administered medications on file prior to visit. [facility] 04-28-2025 Evaluation note Authored April 28, 2025 [...] hepatitis serologies. - Will arrange for FibroScan [facility] Work Phone: [phone]) 272-315407-28-2025 Evaluation note* Author [facility] Authored April 28, 2025 11:1 2am [...] hepatitis serologies. - Will arrange for FibroScan Author [facility] Authored June 19, 2025 10:28am 25-year-old female referred to liver clinic for evaluation of elevated bilirubin and fatty liver Ultrasound on 12/12/2024 showed hepatic steatosis FibroScan showed LSM 7.3 and CAP 223 Viral hepatitis serologies showed immunity for hepatitis B otherwise it was unremarkable. - Patient has isolated indirect hyperbilirubinemia rest of LFTs are normal, blood cell counts are normal, total bilirubin < 3. I explained to the patient that this is consistent with Gilbert's which is a benign condition. [facility] Work Phone: 1(111) 492-926906-05-2025 [facility] Reason for cardiology visit follow-up HPI: 03/06/2025 Lili is here to follow-up after her recent [...] edema or leg discomfort on exertion. 11/05/2024 Lili Wills is a 24 y.o. female without [...] bilateral upper and lower (more content not included)...[facility]06-05-2025 Note Patient is here today for an [...] chest pain (occasional soreness). Neurological: Positive for dizziness.[facility] 12-18-2024 [facility] Reason [...] edema or leg discomfort on exertion. 11/05/2024 Lili Wills is a 24 y.o. female without [...] heart rate 41 to (more content not included)...[facility]03-13-2025 Evaluation note* Author [facility] Authored April 28, 2025 11:1 2am [...] hepatitis serologies. - Will arrange for FibroScan [facility] Work Phone: 1(114) 337-319802-04-2025 [facility] Reason for cardiology consult: Tachycardia, bradycardia, and dizziness. Chief Complaint: As above HPI: Lili Wills is a 24 y.o. female without [...] also watching her heart rate with the [employer] machine and it was showing that her [...] total protein 7.8, albumin (more content not included)...[facility]* Diagnosis Onset Date Resolution Status Cellulitis of right breast a cute [facility] Work Phone: Evaluation note* Diagnosis Onset Date Resolution Status Admit Date Chest pain acute October 21, 2024 9:20am Fatigue acute October 21, 2024 9:20am Urinary frequency acute October 21, 2024 9:20am [facility] Work Phone: Evaluation note* Diagnosis Onset Date Resolution Status Admit Date Elevated bilirubin acute January 10:31am [facility] Work Phone: Reason for referral (narrative)No reason for referral information [facility] Work Phone: Summary Purpose Family [...] fatty liver May 15, 2025 12 :35pm follow up Fibroscan June 19, 2025 10:12am Reason for Visit Admit Date Elevated bilirubin April 28, 2025 10:5 0am Fatty liver April 28, 2025 10:5 0am Gilbert syndrome April 28, 2025 10:5 0am Gilbert syndrome June 19, 2025 10:12am Additional Source Comments INFORMATION SOURCE (unrecogn ized section and content) DATE CREATED AUTHOR 09/19/2020 [facility] DATE CREATED AUTHOR AUTHOR'S ORGANIZ ATION 06/01/2025 [facility] DATE CREATED AUTHOR AUTHOR'S ORGANIZ ATION 07/10/2025 [facility] Care Teams (unrecognized sec tion and content) Team Status: Active Member Role Status Dates Muna Quintanilla MD Primary Care Provider Active Team Status: Inactive Member Role Status Dates Muna Quintanilla MD Primary Care Provider Active Start: [...] May 15, 2025 End: May 15, 2025 Team Status: Active Member Role Status Janet Quintanilla MD Primary Care Provider Active Start: May 15, 2025 Heidy Rojas MD Other Provider Active Start: May Raffaele Azevedo MD Attending Provider Active S tart: May 15, 2025 Team Status: Active Member Role Status Janet Quintanilla MD Primary Care Provider Active Start: June 05, 2025 Heidy Rojas MD Attending Provider Active Start: June 05, 2025 Team Status: Inactive Member Role Status Janet Quintanilla MD Primary Care Provider Active Start: June 19, 2025 End: June 19, 2025 Heidy Rojas MD Attending Provider Active Start: June 19, 2025 End: June 19, 2025 Goals (unrecognized section and content) Goals [...] BE BASED ON THE PRIMARY CLINICAL RECORDS. [facility]. provides no warranty or guarantee of the accuracy or completeness of information in this document.
--- NOTE | 2025-07-10 21:18 | ECG_ITS ---
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 Measurements Intervals Cobb Rate: 88 P: 74 AR: 130 QRS: 71 QRSD: 74 T: 74 QT: 332 QTc: 378 Interpretive Statements 1100 Sinus rhythm 4068 Nonspecific Twave abnormality 9130 borderline ECG Compared to ECG 10/21/2024 10:54:38 Sinus bradycardia no longer present Sinus arrhythmia no longer present Electronically Signed On 07-11-2025 7:35:27 EDT by CHRISTIN STRICKLAND M.D.
--- NOTE | 2025-07-10 21:36 | ED_ITS ---
HPI - Arrhythmia/Palpitations General Chief Complaint: Arrhythmia/Palpitations Stated Complaint: tachy Time Seen by Provider: 07/10/25 21:11 Source: patient and family Mode of arrival: walk-in Limitations: no limitations History of Present Illness HPI narrative: This 25-year-old female who is being evaluated by [facility] cardiology for SVT versus other arrhythmias presents for evaluation of an episode of racing heart earlier today. The patient states she had some pressure in her chest earlier today that went into her shoulders. She dealt with it most of the day but earlier this evening it became more severe. She called her mother to come over to the house and bring the [employer] mobile device. She states by the time they were able to connect that her pulse was in the 120s. The patient thinks her pulse went up into the 160s to 180s prior to that but does not have any documentation for it. She states she felt dizzy and uncomfortable at that time. She has had episodes of what has been thought to be SVT and had a monitoring device that showed possibly some ventricular tachycardia. She is being evaluated for a loop recorder but this has not been placed at this time. She denies any smoking, drinking or drug use. She denies the possibility of . She denies any abdominal pain. She has not had any fever or cough. She has no lower extremity pain or swelling. She also has Gilbert's disease that is being monitored by her family physician. Related Data Home Medications ?Medication ?Instructions ?Recorded ?Confirmed No Known Home Medications 07/10/25 1006/26 Allergies Allergy/AdvReac Type Severity Reaction Status Date / Time ceftriaxone (From Rocephin) Allergy Mild Hives Verified 07/10/25 21:22 Review of Systems ROS Status of ROS 10 or more systems reviewed and unremark able except as noted in history and below PFSH PFSH Social History Little interest or pleasure in doing things: not at all Feeling down, depressed, or hopeless: not at all Exam Narrative Exam Narrative: Vital signs and Nursing Notes reviewed: Patient is afebrile with normal pulse, blood pressure is mildly elevated at 140/92, she is not hypoxic with pulse ox of 98% on room air General: Awake, alert, oriented, no acute distress, mildly anxious female, she is lying comfortably on the stretcher ambulatory to the bathroom without difficulty HEENT: Normocephalic atraumatic, mucous membranes are moist and pink, eyes are clear, normal conjunctiva, vision is grossly intact, posterior pharynx is normal in appearance Neck: Supple Chest: Lungs are clear to auscultation with good air entry, there is no wheezing rhonchi or rales appreciated no accessory muscle use, patient is speaking in complete sentences-no chest wall tenderness to palpation CVS: Regular rate and rhythm S1-S2, no murmurs rubs or gallops, pulses are brisk and equal bilaterally ABD: Soft, nondistended, nontender, no rebound guarding or rigidity, bowel sounds are normal, no pulsatile masses appreciated Extremities: Moving all extremities, no lower extremity tenderness or swelling noted, negative Homans' sign, pulses are brisk and equal bilaterally Skin: Normal in appearance without rash,pallor, petechiae or purpura Neuro: No focal deficits Constitutional Vital Signs, click to edit/add: Last Vital Signs Temp 98.3 F 07/10/25 21:15 Pulse 78 07/10/25 22:45 Resp 16 07/10/25 22:45 BP 135/82 07/10/25 22:45 Pulse Ox 98 07/10/25 22:45 O2 Del Method Room Air 07/10/25 22:45 Course Vital Signs Vital signs: Vital Signs Temperature 98.3 F 07/10/25 21:15 Pulse Rate 87 07/10/25 21:15 Respiratory Rate 18 07/10/25 21:15 Blood Pressure 140/92 H 07/10/25 21:15 Pulse Oximetry 98 07/10/25 21:15 Oxygen Delivery Method Room Air 07/10/25 21:15 Temperature 98.3 F 07/10/25 21:15 Pulse Rate 78 07/10/25 22:45 Respiratory Rate 16 07/10/25 22:45 Blood Pressure 135/82 07/10/25 22:45 Pulse Oximetry 98 07/10/25 22:45 Oxygen Delivery Method Room Air 07/10/25 22:45 MDM - Arrhythmia/Palpitations MDM Narrative Medical decision making narrative: This 25-year-old female who is being evaluated by cardiology for episodes of palpitations and thought to have SVT by 1 running specialist and is being evaluated for a loop recorder to rule out other etiologies presents for evaluation of palpitations that occurred at home earlier today and became increasingly more uncomfortable earlier in the evening with radiation into her back presents for evaluation of the above complaints. The mother states that the symptoms have been present since last . She has been seen by cardiology several times. She had multiple events during a 14-day cardiac monitoring device. She does not drink or smoke. She does not have any significant medical history besides Gilbert's syndrome. Jesús her mother came to her house after she was complaining of palpitations with pressure in her chest radiating into her shoulders and the [employer] mobile device was attempted. Her pulse was in the 120s on this device but the patient feels that her pulse was in the 160s to 180s. In the emergency department an EKG was done upon arrival which is a sinus rhythm 88 bpm with a normal axis and flattening of the T waves but otherwise normal. She was placed on the monitoring manager and has not had any episodes of arrhythmia or tachycardia. Blood pressure has been stable. An IV was attempted but the patient ultimately requested that the IV not be placed because she does not feel that she is dehydrated. A cardiac workup was ordered. She has a normal white count and stable hemoglobin. Electrolytes are normal. Her bilirubin is elevated at 2.0 which is consistent with her baseline. She has a normal troponin. She has normal D-dimer. TSH is also normal. On reevaluation she is feeling somewhat better. I had a lengthy discussion with the patient and her mother. The mother is questioning why she has not been placed on beta- blockers but I explained to her that they are likely not placing her on beta- blockers until they have a diagnosis for which to prescribe these. I also explained they may not want to blunt the episodes of arrhythmia with a beta- delia at this time. She does have follow-up with cardiology in the near future. She was encouraged return to emergency department as needed for worsening symptoms, dizziness, syncope near syncope chest pain or any concerns. Lab Data Attestation: I reviewed the patient's lab results. Labs: Lab Results 07/10/25 Range/Units 21:00 WBC 8.0 (4.0-11.0) 10^3/uL RBC 4.62 (4.20-5.40) 10^6/uL Hgb 14.3 (12.0-16.0) g/dL Hct 40.1 (36.0-48.0) % MCV 86.8 (81.0-99.0) fL MCH 31.0 (26.7-34.0) pg MCHC 35.7 H (29.9-35.2) g/dL RDW 12.6 (11.0-15.0) % Plt Count 221 (150-450) 10^3/uL MPV 10.9 (9.5-13.5) fL Neut % (Auto) 67.4 (43.0-75.0) % Lymph % (Auto) 25.6 (20.5-60.0) % [place] % (Auto) 5.4 (1.7-12.0) % Eos % (Auto) 1.1 (0.9-7.0) % Baso % (Auto) 0.4 (0.2-2.0) % Neut # (Auto) 5.4 (1.4-6.5) 10^3/uL Lymph # (Auto) 2.1 (1.2-3.8) 10^3/uL [place] # (Auto) 0.4 (0.3-0.8) 10^3/uL Eos # (Auto) 0.1 (0.0-0.7) 10^3/uL Baso # (Auto) 0.0 (0.0-0.1) 10^3/uL Abs Immat Gran (auto) 0.01 (0.00-0.03) 10^3/uL Imm/Tot Granulo (auto) 0.1 (0.0-0.5) % D-Dimer <0.19 (<=0.59) mg/L FEU Sodium 143 (136-145) mmol/L Potassium 4.0 (3.5-5.1) mmol/L Chloride 105 (98-107) mmol/L Carbon Dioxide 28.2 (21.0-32.0) mmol/L Anion Gap 13.8 BUN 9.0 (7.0-18.0) mg/dL Creatinine 0.57 (0.55-1.02) mg/dL Est GFR ( Amer) >60 (>=60 mL/min/1.73m^2) Est GFR (Non-Af Amer) >60 (>=60 mL/min/1.73m^2) BUN/Creatinine Ratio 15.8 Glucose 111 H (74-106) mg/dL Calcium 9.0 (8.5-10.1) mg/dL Total Bilirubin 2.0 H (0.2-1.0) mg/dL AST 24 (15-37) U/L ALT 28 (14-59) U/L Alkaline Phosphatase 54 (46-116) U/L Troponin I High Sens <4.0 L (4.0-51.3) pg/mL Total Protein 7.8 (6.4-8.2) g/dL Albumin 4.2 (3.4-5.0) g/dL Globulin 3.6 g/dL Albumin/Globulin Ratio 1.2 TSH 1.635 (0.358-3.740) uIU/mL Urine Color Lt. green (YELLOW) Urine Clarity Clear (CLEAR) Urine pH 6.0 (5.0-9.0) Ur Specific [place] <=1.005 A (1.005-1.025) Urine Protein Negative (NEG/TRACE) mg/dL Urine Glucose (UA) Negative (NEGATIVE) mg/dL Urine Ketones Negative (NEGATIVE) mg/dL Urine Occult Blood Negative (NEGATIVE) Urine Nitrite Negative (NEGATIVE) Urine Bilirubin Negative (NEGATIVE) Urine Urobilinogen 0.2 (0.2-1.0) EU/dL Ur Leukocyte Esterase Negative (NEGATIVE) Urine RBC None seen (0-2) #/HPF Urine WBC None seen (NONE SEEN) #/HPF Ur Squamous Epith Cells Rare (NONE/RARE) #/LPF Ur Transition Epith Cell Rare A (NONE SEEN) #/LPF Urine Crystals Seen A (None Seen) #/HPF Amorphous Sediment Rare Urine Bacteria None seen (NONE SEEN) #/HPF Urine Casts None seen (NONE SEEN) #/LPF Urine Mucus None seen (NONE SEEN) Ur Culture Indicated? No ECG Data Attestation: I personally reviewed and interpreted this ECG as follows: (Sinus rhythm 88 bpm, normal axis, nonspecific ST changes with diffuse flattening of T waves with no acute ST segment elevation or T wave inversion) Discharge Plan Discharge Chief Complaint: Arrhythmia/Palpitations Clinical Impression: Palpitations Patient Disposition: Home, Self-Care Time of Disposition Decision: 22:37 Condition: Good Prescriptions / Home Meds: No Action No Known Home Medications Print Language: Syriac Instructions: Heart Palpitations (ED) Referrals: Muna Vazquez MD [Primary Care Provider, Family Practice] - 1 week Durga Summers MD [Physician, Cardiology] - 1 week Discharge Date/Time: 07/10/25 22:45
[2025-07-10 21:58] LABS: Hematocrit 40.1 % (36.0-48.0); Hemoglobin 14.3 g/dL (12.0-16.0); Immature Granulocytes Abs Auto 0.01 10^3/uL (0.00-0.03); Immature Granulocytes Pct Auto 0.1 % (0.0-0.5); Lymphocytes Absolute Auto 2.1 10^3/uL (1.2-3.8); Mean Corpuscular HGB Conc 35.7 g/dL (29.9-35.2); Mean Corpuscular Hemoglobin 31.0 pg (26.7-34.0); Mean Corpuscular Volume 86.8 fL (81.0-99.0); Platelet Count 221 10^3/uL (150-450); Red Blood Count 4.62 10^6/uL (4.20-5.40); White Blood Count 8.0 10^3/uL (4.0-11.0)
[2025-07-10 22:18] LABS: Alanine Aminotransferase 28 U/L (14-59); Albumin Globulin Ratio 1.2; Albumin Level 4.2 g/dL (3.4-5.0); Alkaline Phosphatase 54 U/L (46-116); Anion Gap 13.8; Aspartate Amino Transferase 24 U/L (15-37); Blood Urea Nitrogen 9.0 mg/dL (7.0-18.0); Calcium 9.0 mg/dL (8.5-10.1); Carbon Dioxide 28.2 mmol/L (21.0-32.0); Chloride 105 mmol/L (98-107); Estimated GFR (African America >60 (>=60 mL/min/1.73m^2); Estimated GFR (Non-African Ame >60 (>=60 mL/min/1.73m^2); Globulin 3.6 g/dL; Glucose 111 mg/dL (74-106); Potassium 4.0 mmol/L (3.5-5.1); Sodium 143 mmol/L (136-145); Total Protein 7.8 g/dL (6.4-8.2)
[2025-07-10 22:27] LABS: Thyroid Stimulating Hormone 1.635 uIU/mL (0.358-3.740)
[2025-07-10 22:45] VITALS: BP 135/82; PULSE 78; O2SAT 98
[2025-07-10 22:46] LABS: Glucose Urine UA NEGATIVE (NEGATIVE)
[2025-07-10 22:52] LABS: Cast Seen? NONE SEEN #/LPF (NONE SEEN); Crystals Seen? Seen #/HPF (None Seen); Urine Culture Indicated NO
== END 2025-07-10 22:45 | disposition home or self-care (01) ==
PROVIDERS: Emergency Provider Emergency Medicine; PCP Family Medicine
DX: R00.2 Palpitations (principal); E80.4 Gilbert syndrome
CPT/HCPCS: 36415; 80053; 81001; 84443; 84484; 85025; 85378; 93005; 99285